=== PATIENT | female | born 1955 | race Caucasian/White ===

== ENCOUNTER → 2016-10-09 | Outpatient (CLI) | payer OTHER ==
[~2016-10-09] MED LIST: ALBU1AER9 INH; ALBUAER19 INH; ASPCH81X PO; B-COTAB18; CALCTAB5 PO; CHN/1 PO; CLON0.5T3 PO; CLOP1TAB15 PO; FLUO40CA8 PO; GLC/500 PO; GLC500 PO; LISI5TAB PO; METO-596 PO; METO1TAB69 PO; METO50TA17; MULTTAB58 PO; OMEG10007 PO; ONDA4TAB10 SL; PROAIR INH; SIMV-151 PO
--- NOTE | 2016-10-10 06:30 | PAP/PSG TECHNICIAN REPORT ---
[facility] Edge Beader Polysomnogram Report Study name: None Report date: 10/10/2016 Study date: 10/09/2016 Referring Physician: DR. FORREST Name: SANDRA FABIAN Interpreting Physician: Ian Forrest M.D. Date of : 1955 Edge Beader: Kelly Leon [facility]. Sex: Female Age: 61 Study Type: PSG Weight: 196 lbs 15 in Height: 61 years, Height 5' 2" Neck Circum: BMI: 35.84 Medications: ALBUTEROL SULFATE, ASPIRIN 81 MG, CALCIUM, CHANTIX 1 MG, CHROMIUM, CLONAZEPAM 0.5 MG, CLOPIDOGREL BISULFATE 75 MG, VIT D 5000 UNIT, FISH OIL, FLUOXETINE 40 MG, HYDROCODONE-ACETAMINOPHEN 5-325 MG, KETOCONAZOLE 2% EX CREAM, LISINOPRIL 5 MG, MAGESIUM OXIDE, METFORMIN 500 MG, METHOCARBAMOL 500 MG, METHYLPREDNISOLONE 4 MG, METOPROLOL 50 MG, MULTI VIT, PROAIR HFA, SIMVASTATIN 20 MG, SYMBICORT, VIT B COMPLEX Patient History 61 yr-old female here for a baseline/split study. She has a history of excessive daytime sleepiness, snoring, and has to take naps during the day. Her Manzanita scale is 12. CPAP will be started if AHI is above 15 (per H&P). The test was started on room air. ETCO2 testing was not utilized during this study. Room 1 Parameters Monitored NPSG: E1-M2, E2-M1, Fp1-M2, Fp2-M1, F3-M2, F4-M2, F4-M1, C3-M2, C4-M2, C4-M1, O1-M2, O2-M2, O2-M1, T3-M2, T4-M1, P3-M2, P4-M1, CHIN1, CHIN2, HR, EKG, Legs, PFLOW, SNOR, FLOW, CFLOW, Tidal Volume, THOR, ABDO, SpO2, PLTH, CPRESS, ETCO2 Wave, ETCO2, pH Sleep Architecture Sleep Stages Time at Lights Off 8:48:14 PM STAGES Time (min.) TST (%) Time at Lights On 5:30:14 AM Wake 104.0 -- Total Recording Time (TRT) 522.00 min. N1 87.0 21 Total Sleep Period (TSP) 458.5 min. N2 262.0 63 Total Sleep Time (TST) 418.0min. N3 5.5 1 Awake Time 104.0 min. REM 63.5 15 Wake after Sleep Onset 40.5 min. Sleep Efficiency (SE) 80 % Sleep Onset Latency (NIKI) 63.5 min. Number of Stage 1 Shifts None Awakenings 19 Stage Changes 113 Number of REM periods 3 REM 63.5 15 REM Latency 220.5 min. NREM 354.5 85 Body Position Analysis Supine Right Left Side Prone Vertical Total Sleep Time (min.) 0.2 101.5 196.7 298.18 128.3 0.0 Total Sleep Time (%) 0% 24% 47% 71 29% N/A% Total Sleep Time REM (min.) 0.0 0.0 15.5 None 48.0 0.0 Total Sleep Time NREM (min.) 0.0 101.5 181.2 None 71.8 0.0 Intermittent Wake (min.) 0.2 26.0 69.3 None 8.5 0.0 Total Sleep Period (%) 0% None None None None None Arousals Myoclonus (PLM) * Events Count Index Events Count Index Spontaneous 28 4 Events Awake (PLMW) 38 21.9 Respiratory 9 1.3 Events Asleep w/ Arousal (PLMA) 11 1.6 PLM 11 2 Events Asleep w/o Arousal (PLMS) 164 23.5 Snoring 46 7 Total Asleep 175 25.1 Total 94 13 Total 213 24 Respiratory Analysis * CA OA MA CH H RERA Total Count 0 1 1 0 43 8 45 Index 0.0 0.1 0.1 0 6.2 1 7.6 Mean Duration 0.0 15.6 17.5 0.00 19.5 16.9 19.0 Longest Duration 0.0 15.6 17.5 0.00 17.5 20.0 48.5 Respiratory Event Summary Total Supine ~Supine Right Left Prone REM NREM Apneas Count 2 N/A 2 1 1 0 0 2 Index 0.3 N/A 0 0.6 0.3 0 0 0 Hypopneas (4% Desat) Count 43 N/A 43 2 21 20 18 25 Index 6.2 N/A 6 1.2 6.4 10.0 17.0 4.2 Apneas & All Hypopneas Count 45 N/A 45 3 22 20 18 27 Index 6.5 N/A 6 2 7 10 17.0 4.6 Respiratory Events (Lead Burner+All Hyp+RERA) Count 45 N/A 53 3 26 24 18 27 Index 7.6 N/A 8 1.8 7.9 12.0 18.9 5.6 Respiratory Related Arousal Count 9 N/A 9 0 5 4 2 7 Index 1.3 N/A 1 0 2 2 2 1 Snoring Analysis Supine Right Left Prone REM NREM Total Snore duration 106.5 min Snores count N/A 975 1,907 1,160 645 3,397 4,042 Snore mean duration 1.6 Sec Snores index N/A 576 582 581 609.4 575.0 580.2 TST with snoring (%) 25.5% Desaturation Event Summary: Minimum %SpO2 Event Count Mean/Min/Max Duration(sec.) Desaturation Index % Time In Bed > 90 54 30.2 / 11.0 / 60.0 10.4 60.7 86 - 90 17 30.0 / 11.0 / 49.3 5.2 38.4 81 - 85 0 N/A 0.0 0.9 76 - 80 0 N/A 0.0 0.0 71 - 75 0 N/A 0.0 0.0 66 - 70 0 N/A 0.0 0.0 61 - 65 0 N/A 0.0 0.0 56 - 60 0 N/A 0.0 0.0 51 - 55 0 N/A 0.0 0.0 < 50 0 N/A 0.0 0.0 Total REM NREM Awake <50% 0.0 min. 0.0 min. 0.0 min. 0.0 min. 51 - 60% 0.0 min. 0.0 min. 0.0 min. 0.0 min. 61 - 70% 0.0 min. 0.0 min. 0.0 min. 0.0 min. 71 - 80% 0.0 min. 0.0 min. 0.0 min. 0.0 min. 81 - 90% 202.2 min. 34.2 min. 122.4 min. 45.6 min. 91 - 100% 312.7 min. 29.3 min. 231.4 min. 52.0 min. Average 91 90 91 91 Minimum SpO2 79 81 86 79 Desaturation Event Index 6.6 15.1 6.1 3.5 # Desat. Events below 89% 26 11 13 2 Time(%) with Saturation below 89% 4.0 2.8 1.1 0.1 Time(min.) with Saturation below 89% 20.8 14.6 5.6 0.6 Time (mins) REM (mins) NREM (mins) % of TST SpO2 Below 90% 46 16 N30 13.1 SpO2 Below 88% 13 0 0 2 Heart Rate Analysis Min (bpm) Max (bpm) Average (bpm) Awake 52 82 61 NREM 53 75 61 REM 57 75 66 Overall 53 75 62 Supplemental O2 Values Minimum O2 level: None Value Start Time End Time Edge Beader Comments Ms. Fabian slept in the right, left, and prone positions. No cardiac arrhythmias or PLMs noted. No bruxism noted. Snoring was noted and scored as a 3-4 on a scale of 1 through 5. (0=no snoring, 5=snoring loud enough to be heard through a closed door or down the garcia way) She did not meet specific Split-Night criteria during the diagnostic portion of this study. She awoke to use the restroom one time during the night. Ms. Fabian stated that she was unsure of how she slept. The final report will be interpreted and signed by a sleep physician. The completed physician report will then be placed in the patient medical record. Therapy (cm H2O) 0 TIB (min.) 522.0 TST (min.) 418.0 Sleep Onset (min.) 63.5 REM Onset From Sleep (min.) 220.5 Sleep Efficiency % 80 Wakefulness (%) 20 Wakefulness (min.) 104.0 NREM 1 (%) 21 NREM 1 (min.) 87.0 NREM 2 (%) 63 NREM 2 (min.) 262.0 NREM 3 (%) 1 NREM 3 (min.) 5.5 REM (%) 15 REM (min.) 63.5 # Arousals 94 Arousal Index 13 # Snore 4,042 Snore Index 580.2 AHI 6.5 AHI Supine N/A AHI Non-Supine 6 NREM AHI 4.6 REM AHI 17.0 RDI 7.6 # Obstructive Apnea 1 # Central Apnea 0 # Mixed Apnea 1 # Hypopneas 43 RERAs 8 Total Respiratory Events 53 Time Below SpO2 89% (min.) 20.2 Mean NREM SpO2 (%) 91 Mean REM SpO2 (%) 90 Mean Sleep SpO2 (%) 91 Min NREM SpO2 (%) 86 Min REM SpO2 (%) 81 Position Supine (min.) 0.2 Position Non-supine (min.) 418.0 LM Index Sleep 25.1 LM Index NREM 27.2 LM Index REM 13.2 Mean Heart Rate (bpm) 62 Min Heart Rate (bpm) 53
--- NOTE | 2016-10-12 08:54 | POLYSOMNOGRAPH REPORT ---
CLINICAL DATA: 61-year-old female with fatigue, snoring, excessive daytime sleepiness, and a crowded airway. She is referred by myself and Avila Lopez for a sleep study. SLEEP ARCHITECTURE: Total sleep period was 458.5 minutes. Total sleep time was 418 minutes divided between 354.5 minutes of non-REM sleep and 63.5 minutes of REM sleep. Sleep onset latency was delayed at 63.5 minutes. REM latency was delayed at 220.5 minutes. Sleep efficiency was 80%. Wake after sleep onset was 40.5 minutes. Sleep consisted of stage N1 29%, N2 63%, N3 1%, REM 15%. AROUSAL DATA: 94 arousals were recorded for an index of 13 per hour. PLM DATA: 175 limb movements during sleep were noted for an index of 25.1 per hour with arousal index of 1.6 per hour. RESPIRATORY DATA: Very mild sleep apnea was documented. The AHI was 6.5. The RDI was 7.6. There was 1 obstructive and 1 mixed apneic episode. The longest duration of apnea was 17.5 seconds. There were 43 hypopneic episodes. The mean duration of hypopnea was 19.5 seconds. OXIMETRY DATA: Mild nocturnal hypoxemia was seen. Oxygen anne marie was 81% during REM. The mean saturation was 91%. Time below 88% was 13 minutes. EKG: Heart rates ranged from 53-75 beats per minute. No arrhythmias were noted. VACUUM CASTER'S COMMENTS: The patient slept in the right, left, and prone positions. Snoring was moderate to severe, rated 3-4 on a scale of 1-5. IMPRESSION: Mild obstructive sleep apnea with an AHI of 6.5 with mild nocturnal hypoxemia. RECOMMENDATIONS: The patient may benefit from weight loss, use of an oral appliance or a repeat sleep study with CPAP. Clinical correlation is needed. [facility]ITAL[facility]
== END | disposition home or self-care (01) ==
LOC: C.NEUR 20:00
PROVIDERS: ATTEND Internal Medicine Pulmonary Disease
DX: G47.19 Other hypersomnia (principal); R06.83 Snoring; G47.33 Obstructive sleep apnea (adult) (pediatric)

== ENCOUNTER → 2016-10-17 | Outpatient (CLI) | payer OTHER ==
[~2016-10-17] VITALS: Ht 157.5 cm; Wt 91.4 kg
[2016-10-17 12:28] VITALS: BP 149/80; PULSE 73; Ht 157.5 cm; Wt 91.4 kg
== END | disposition home or self-care (01) ==
LOC: C.NEUR 12:05
PROVIDERS: ATTEND Internal Medicine Pulmonary Disease
DX: G47.33 Obstructive sleep apnea (adult) (pediatric) (principal); J45.909 Unspecified asthma, uncomplicated; G47.19 Other hypersomnia

== ENCOUNTER 2016-11-09 14:47 | Emergency (ER) | payer OTHER ==
[~2016-11-09] VITALS: Ht 157.5 cm; Wt 82.6 kg
[~2016-11-09 14:47] MED LIST changes: -ASPCH81X PO; -CHN/1 PO; -CLON0.5T3 PO; -CLOP1TAB15 PO; -GLC/500 PO; -METO-596 PO; -METO1TAB69 PO; -OMEG10007 PO; -ONDA4TAB10 SL; -PROAIR INH
[2016-11-09 15:02] VITALS: TEMP 37.6; Ht 157.5 cm; Wt 82.6 kg
[2016-11-09] MEDS ORDERED: SODIUM CHLORIDE 0.9% 500ML 500 ML IV STA (16:35)
[2016-11-09] MEDS ORDERED: SODIUM CHLORIDE 0.9% 1000ML 1,000 ML IV STA (16:35)
[2016-11-09] MEDS ORDERED: ONDANSETRON INJ 2 MG/ML 2 ML VIAL IV STA (16:35)
[2016-11-09] MEDS ORDERED: CHN/1 PO (16:40)
[2016-11-09] MEDS ORDERED: GLC/500 PO (16:40)
[2016-11-09] MEDS ORDERED: PROAIR INH (17:02)
[2016-11-09 17:19] LABS: BASO % 0.2 %; BASO ABS # 0.02 K/uL (0-0.2); COMPLETE YES; EOS % 0.2 %; HEMATOCRIT 40.3 % (37-47); IG% 0.3 %; LYMPH ABS # 0.35 K/uL (1.2-3.4); MEAN CELL VOLUME 94.6 fL (80-100); MEAN CORPUSCULAR HEMOGLOBIN 32.6 pg (25-34); MEAN CORPUSCULAR HGB CONC 34.5 g/dl (32-36); MEAN PLATELET VOLUME 9.2 fL (7.4-10.4); MONO % 5.5 %; NEUT % 89.8 %; PLATELET COUNT 247 K/uL (130-400); RED BLOOD COUNT 4.26 M/uL (4.2-5.4)
[2016-11-09 17:23] LABS: URINE APPEARANCE CLEAR (CLEAR); URINE BILIRUBIN NEG (NEG); URINE COLOR DK YELLOW; URINE EPITHELIAL CELL AUTO >30 /lpf (0-5); URINE NITRITE NEG (NEG); URINE SPECIFIC GRAVITY 1.028 (1.000-1.030); UROBILINOGEN NEG (NEG); ZZUR CULT IF INDIC CLEAN CATCH NO
[2016-11-09 17:24] LABS: MANUAL MICROSCOPIC REQUIRED? NO; REVIEW REQ? NO
[2016-11-09 17:40] LABS: MAGNESIUM 1.6 mg/dl (1.8-2.4)
[2016-11-09] MEDS ORDERED: CLOP1TAB15 PO (19:06)
[2016-11-09] MEDS ORDERED: OMEG10007 PO (19:06)
[2016-11-09] MEDS ORDERED: CLON0.5T3 PO (19:06)
[2016-11-09] MEDS ORDERED: METO1TAB69 PO (19:06)
[2016-11-09] MEDS ORDERED: ONDA4TAB10 SL (20:20)
--- NOTE | 2016-11-09 20:21 | EMERGENCY ROOM VISIT NOTE ---
History First contact with patient: 16:16 Chief Complaint: VOMITING Stated Complaint: VOMITING AND DIARRHEA Nursing Triage Summary: Patient reports that for the past two to three days she has had nausea and vomiting in the morning only but states today it has been all day. Patient denies any pain. States when she vomits it is yellow bile. Also c/o diarrhea. History of Present Illness The patient is a 61 year old female who presents to the Emergency Department by private vehicle for evaluation of her nausea, vomiting, and diarrhea. The patient reports that she has had diarrhea for the past few weeks. She is not been evaluated for this to this point. She reports that approximately 3 AM she developed nausea and vomiting. She's had persistent symptoms throughout the day. She denies any recent sick contacts. She denies any blood in her vomit or stool. The patient denies any recent long distance travel, recent antibiotic use, consumption of raw/undercooked foods, or drinking from poor water sources. She denies any pain in her abdomen. She rates her current discomfort as 0/10. She denies any headaches, dizziness, lightheadedness, chest pain, palpitations, short of breath, hematochezia, melena, hematuria, or dysuria. Review of Systems A complete 10-point Review of Systems was discussed with the patient, with pertinent positives and negatives listed in the History of Present Illness. All remaining Review of Systems questions can be considered negative unless otherwise specified. Social History Smoking Status: Former Smoker Alcohol Use: none Drug Use: none Marital Status: single Housing Status: lives alone Occupation Status: employed Current/Historical Medications Scheduled B-Complex Vitamins (Vitamin B Complex), DAILY Clonazepam (Klonopin), 0.5 MG PO TID Clopidogrel (Plavix), 75 MG PO DAILY Fish Oil (Taylor-3), 1 CAP PO BID Fluoxetine (Prozac), 40 MG PO DAILY Lisinopril (Prinivil), 5 MG PO DAILY Metformin Hcl (Glucophage), 1,000 MG PO BID Metoprolol Succ (Toprol Xl) (Toprol-Xl ), 100 MG PO BID Multiple Vitamin (Multivitamin), 1 TAB PO DAILY Simvastatin (Simvastatin), HS Varenicline (Chantix), 1 MG PO BID Scheduled PRN Ondasetron Odt (Zofran Odt), 1 TAB SL Q6 PRN for Nausea or Vomiting [Proair], 2 PUFFS INH QID PRN for SOB/Wheezing Allergies Coded Allergies: No Known Allergies (Verified , 03/01/13) Physical Exam Vital Signs Date Time Temp Pulse Resp B/P Pulse Ox O2 Delivery O2 Flow Rate FiO2 11/09/16 20:40 86 20 120/72 97 11/09/16 18:56 87 18 104/65 97 Room Air 11/09/16 16:48 96 18 128/79 98 Room Air 11/09/16 15:02 37.6 108 20 115/72 95 Room Air Pain Rating (0-10): 0 Physical Exam VITAL SIGNS - Vital signs and nursing notes were reviewed. GENERAL - 61-year-old female appearing her stated age who is in no acute distress. Communicates well with provider and answers questions appropriately. LUNGS - Chest wall symmetric without accessory muscle use, intercostals retractions, or central cyanosis. Normal vesicular breath sounds CTA B/L. No wheezes, rales, or rhonchi appreciated. CARDIAC - RRR with S1/S2. No murmur, rubs, or gallops appreciated. ABDOMEN - Abdominal contour obese and without pulsations or visible masses. BS normoactive all four quadrants. No tenderness to palpation appreciated throughout. No guarding. No Rebound Tenderness. Negative Rovsing's. Negative Conway's. No palpable masses, hepatosplenomegaly, or ascites noted. PSYCH - A&Ox3 and cooperates fully with examiner. Pt is very pleasant and interacts well with examiner. Medical Decision & Procedures Laboratory Results 11/09/16 17:05 Red Blood Count 4.26, Mean Corpuscular Volume 94.6, Mean Corpuscular Hemoglobin 32.6, Mean Corpuscular Hemoglobin Concent 34.5, Mean Platelet Volume 9.2, Neutrophils (%) (Auto) 89.8, Lymphocytes (%) (Auto) 4.0, Monocytes (%) (Auto) 5.5, Eosinophils (%) (Auto) 0.2, Basophils (%) (Auto) 0.2, Neutrophils # (Auto) 7.80, Lymphocytes # (Auto) 0.35, Monocytes # (Auto) 0.48, Eosinophils # (Auto) 0.02, Basophils # (Auto) 0.02 Test 11/09/16 17:05 11/09/16 18:55 White Blood Count 8.70 K/uL (4.8-10.8) Red Blood Count 4.26 M/uL (4.2-5.4) Hemoglobin 13.9 g/dL (12.0-16.0) Hematocrit 40.3 % (37-47) Mean Corpuscular Volume 94.6 fL (80-100) Mean Corpuscular Hemoglobin 32.6 pg (25-34) Mean Corpuscular Hemoglobin Concent 34.5 g/dl (32-36) Platelet Count 247 K/uL (130-400) Mean Platelet Volume 9.2 fL (7.4-10.4) Neutrophils (%) (Auto) 89.8 % Lymphocytes (%) (Auto) 4.0 % Monocytes (%) (Auto) 5.5 % Eosinophils (%) (Auto) 0.2 % Basophils (%) (Auto) 0.2 % Neutrophils # (Auto) 7.80 K/uL (1.4-6.5) Lymphocytes # (Auto) 0.35 K/uL (1.2-3.4) Monocytes # (Auto) 0.48 K/uL (0.11-0.59) Eosinophils # (Auto) 0.02 K/uL (0-0.5) Basophils # (Auto) 0.02 K/uL (0-0.2) RDW Standard Deviation 44.9 fL (36.4-46.3) RDW Coefficient of Variation 13.1 % (11.5-14.5) Immature Granulocyte % (Auto) 0.3 % Immature Granulocyte # (Auto) 0.03 K/uL (0.00-0.02) Urine Color DK YELLOW Urine Appearance CLEAR (CLEAR) Urine pH 5.0 (4.5-7.5) Urine Specific Sulphur 1.028 (1.000-1.030) Urine Protein NEG (NEG) Urine Glucose (UA) NEG (NEG) Urine Ketones NEG (NEG) Urine Occult Blood TRACE (NEG) Urine Nitrite NEG (NEG) Urine Bilirubin NEG (NEG) Urine Urobilinogen NEG (NEG) Urine Leukocyte Esterase NEG (NEG) Urine WBC (Auto) 1-5 /hpf (0-5) Urine RBC (Auto) 0-4 /hpf (0-4) Urine Hyaline Casts (Auto) 1-5 /lpf (0-5) Urine Epithelial Cells (Auto) >30 /lpf (0-5) Urine Bacteria (Auto) NEG (NEG) Magnesium Level 1.6 mg/dl (1.8-2.4) Lipase 98 U/L (73-393) Bedside Glucose 107 mg/dl (70-90) Date/Time Source Procedure Growth Status 11/09/16 18:30 Stool Shiga Toxin Test - Final No E. Coli shiga toxin 1 or shiga tox... Complete 11/09/16 18:30 Stool Stool Culture - Final NO SALMONELLA ISOLATED,... Complete Medications Administered Medications (Trade) Dose Ordered Sig/Alban Route Start Time Stop Time Status Last Admin Dose Admin Sodium Chloride 500 ml @ 999 mls/hr Q31M STAT IV 11/09/16 16:35 11/09/16 17:05 DC 11/09/16 16:35 999 MLS/HR Sodium Chloride (Nss 1000ml) 1,000 ml @ 250 mls/hr Q4H STAT IV 11/09/16 16:35 11/09/16 20:34 DC 11/09/16 16:47 250 MLS/HR Ondansetron HCl (Zofran Inj) 4 mg NOW STAT IV 11/09/16 16:35 11/09/16 16:38 DC 11/09/16 16:48 4 MG Ondansetron HCl (ZOFRAN ODT 4MG Home Pack) 1 homepack UD ONCE PO 11/09/16 20:30 11/09/16 20:31 DC 11/09/16 20:44 1 HOMEPACK ED Course Patient was seen and evaluated by myself. Outpatient labs were reviewed. Labs were drawn, saline lock in place. The patient was hydrated with a 500 mL normal saline bolus and received 4 mg Zofran intravenously for nausea. Laboratory results demonstrate no acute leukocytosis, significant anemia, or bandemia. The patient has no significant electrolyte abnormalities. Stool culture was obtained. Patient was reevaluated and reports feeling much better at this time. Stool culture was negative for C. difficile. Laboratory results were reviewed with the patient who acknowledges understanding. She was encouraged to follow with her primary care provider from today's visit. She was educated on worrisome symptoms for return visit to the emergency department. Patient discharged home afebrile and in good condition. Medical Decision Given the patient's presentation and stated complaints, I did elect to perform the above-mentioned workup. The patient presents today with nausea, vomiting, and diarrhea. She has no fever leukocytosis. Her abdomen is soft and nontender to palpation. Her diarrhea seems to be more of a chronic situation well the nausea and vomiting is more acute. The patient is likely experiencing an acute gastroenteritis. Demetrio water well to IV fluids and Zofran. The patient will follow closely with her primary care provider from today's visit or return in the setting of any changing/worsening symptoms. Patient discharged home afebrile and in good condition. In the evaluation and treatment of this patient, the following differential diagnoses were considered: Appendicitis, Diverticulitis, Diverticulosis, Colitis , Ischemic Colitis, Inflammatory Bowel Disease, Irritable Bowel Disease, Kidney Stone, Pyelonephritis, Hydronephrosis, Cholecystitis, Ascending Cholangitis, Choledocholithiasis, GERD. Impression Primary Impression: Nausea, vomiting, and diarrhea Departure Information Dispostion Home / Self-Care Condition GOOD Prescriptions Ondasetron Odt (ZOFRAN ODT) 4 Mg Tab 1 TAB SL Q6 Y for Nausea or Vomiting for 5 Days, #20 TAB Prov: Luis Enrique Santos, MIESHA 11/09/16 Referrals Avila Lopez III, CRNP (PCP) Patient Instructions ED Diet Vomiting Diarrhea, My [facility] Additional Instructions You've been seen in the emergency department today for your nausea, vomiting, and diarrhea. You have been prescribed Zofran to be used for any nausea or vomiting. Take as prescribed. Drink plenty of fluids and stay well-hydrated. Follow-up with your primary care provider from today's visit. Return for any changing or worsening symptoms.
[2016-11-09] MEDS ORDERED: ONDANSETRON HOME PACK 4MG OD TAB PO ONE (20:30)
[2016-11-09 20:40] VITALS: BP 120/72; PULSE 86; O2SAT 97
[2016-11-24] MEDS ORDERED: METO-596 PO (09:49)
[2016-11-24] MEDS ORDERED: ASPCH81X PO (09:49)
== END 2016-11-09 20:40 | disposition home or self-care (01) ==
LOC: C.EDB 14:48 → C.EDC 20:40
DX: R11.2 Nausea with vomiting, unspecified (principal); R19.7 Diarrhea, unspecified; Z87.891 Personal history of nicotine dependence

== ENCOUNTER → 2016-11-09 | Outpatient (CLI) | payer OTHER ==
[2016-11-09 10:00] LABS: ALT/SGPT 29 U/L (12-78); BLOOD UREA NITROGEN 32 mg/dl (7-18); BUN/CREATININE RATIO 31.9 (10-20); CALCIUM 9.2 mg/dl (8.5-10.1); CARBON DIOXIDE 24 mmol/L (21-32); CHLORIDE 104 mmol/L (98-107); CHOLESTEROL 157 mg/dl (0-200); GLUCOSE 126 mg/dl (70-99); POTASSIUM 4.9 mmol/L (3.5-5.1); SODIUM 139 mmol/L (136-145); TRIGLYCERIDES 273 mg/dl (0-150); VERY LOW DENSITY LIPOPROT CALC 55 mg/dl
[2016-11-09 10:07] LABS: ALKALINE PHOSPHATASE 62 U/L (45-117); AST/SGOT 14 U/L (15-37); CHOLESTEROL/HDL RATIO 3.9; HDL CHOLESTEROL 40 mg/dl; LDL CHOLESTEROL CALCULATED 62 mg/dl
[2016-11-09 10:19] LABS: ESTIMATED AVERAGE GLUCOSE 134 mg/dl; HA1C FLAG Normal (Normal)
[2016-11-09 10:33] LABS: RATIO 37.1 mcg/mg (0-30.0)
== END | disposition home or self-care (01) ==
LOC: C.LAB 06:50
PROVIDERS: ATTEND Nurse Practitioner Family
DX: E11.9 Type 2 diabetes mellitus without complications (principal); E78.00 Pure hypercholesterolemia, unspecified; I10 Essential (primary) hypertension

== ENCOUNTER → 2016-11-23 | Outpatient (CLI) | payer OTHER ==
[~2016-11-23] MED LIST changes: -ALBU1AER9 INH; -ALBUAER19 INH; +ASPCH81X PO; -CALCTAB5 PO; +CHN/1 PO; +CLON0.5T3 PO; +CLOP1TAB15 PO; +GLC/500 PO; -GLC500 PO; +METO-596 PO; +METO1TAB69 PO; -METO50TA17; +OMEG10007 PO; +PROAIR INH
[2016-11-26 17:33] LABS: IGA SERUM 241 mg/dL (81-463); TIS TRANS IGA 1 U/mL (<4)
== END | disposition home or self-care (01) ==
LOC: C.LAB1850 10:18
PROVIDERS: ATTEND Internal Medicine
DX: R19.7 Diarrhea, unspecified (principal)

== ENCOUNTER → 2016-12-01 | Day surgery (SDC) | payer OTHER ==
[2016-11-24 09:49] VITALS: BMI 35.0
[~2016-12-01] VITALS: Ht 157.5 cm; Wt 86.4 kg
[~2016-12-01] MED LIST changes: +ALBU1.257 NEB; -B-COTAB18; +BACITRACIN 50000 UNIT VIAL ONE; +BUPIVACAINE/EPINEPHRINE 0.5% MPF 1:200,000 30 ML VIAL ONE; +CYAN100T PO; +FENTANYL CITRATE INJ 50 MCG/1 ML 2 ML VIAL ONE; +LIDOCAINE HCL 2% 2 ML VIAL (20MG/ML) ONE; -METO1TAB69 PO; +PROPOFOL IV EMULSION 10 MG/ML 20 ML VIAL IV ONE; +SODIUM CHLORIDE 0.9% 500ML 500 ML IV ONE; +SODIUM CHLORIDE 0.9% PF 50 ML VIAL ONE
[2016-12-01 10:22] VITALS: Ht 157.5 cm; Wt 86.4 kg
[2016-12-01 10:37] VITALS: TEMP 37.1
--- NOTE | 2016-12-01 10:57 | Endo History and Physical ---
History & Physical Date of Service: Dec 01, 2016. Chief Complaint: diarrhea Referring Physician: Dr Rae History of Present Illness 61 yo CF who presents for colonoscopy secondary to diarrhea. Past Medical History Diabetes, Angioplasty/Stent, Asthma, Anxiety, Gynecological Problems, Cancer, High Cholesterol, Hypertension, Depression, MA Past Surgical History Hx Cardiac Surgery: Yes (CARDIAC CATH-1 STENT) Hx Internal Defibrillator: No Hx Pacemaker: No Hx Abdominal Surgery: Yes (EARL BSO) Hx Post-Op Nausea and Vomiting: No Hx Cancer Surgery: Yes (RT MIDDLE LOBECTOMY) Hx Thoracic Surgery: No Hx Orthopedic: No Hx Urinary Tract Surgery: No Family History Colon CA Social History Smoking Status: Former Smoker Hx Substance Use: No Hx Alcohol Use: No Allergies Coded Allergies: No Known Allergies (Verified , 11/24/16) Current Medications Reported Home Medications Medications Dose Route/Sig Max Daily Dose Days Date Category Aspirin Chewable (Aspirin) 81 Mg Chew 81 Mg PO QAM 11/24/16 Reported Lopressor (Metoprolol Tartrate) 100 Mg Tab 100 Mg PO BID 11/24/16 Reported [Proair] 2 Puffs INH QID PRN 11/09/16 Reported Chantix (Varenicline) 1 Mg Tab 1 Mg PO BID 11/09/16 Reported Glucophage (Metformin Hcl) 500 Mg Tab 1,000 Mg PO BID 11/09/16 Reported Simvastatin 20 Mg Tab 1 Tab PO HS 02/03/15 Reported Multivitamin (Multiple Vitamin) 1 Tab Tab 1 Tab PO QPM 02/03/15 Reported Prinivil (Lisinopril) 5 Mg Tab 5 Mg PO BID 02/03/15 Reported Prozac (Fluoxetine HCl) 40 Mg Cap 40 Mg PO QAM 02/03/15 Reported [place]-3 (Fish Oil) 1 Ea Cap 1 Cap PO BID 12/15/07 Reported Plavix (Clopidogrel Bisulfate) 75 Mg Tab 75 Mg PO QAM 12/15/07 Reported Klonopin (Clonazepam) 0.5 Mg Tab 0.5 Mg PO TID 12/15/07 Reported Vital Signs Weight (Kilograms): 86.36 Height (Feet): 5 Height (Inches): 2 Date Time Temp Pulse Resp B/P Pulse Ox O2 Delivery O2 Flow Rate FiO2 12/01/16 10:37 37.1 72 20 139/82 94 Room Air Physical Exam General Appearance: WD/WN, no apparent distress Respiratory/Chest: Auscultation: breath sounds normal Cardiovascular: Heart Auscultation: RRR Abdomen: Bowel Sounds: normal Inspection & Palpation: soft, non-distended, no tenderness, guarding & rebound Assessment and Plan Assessment: 61 yo CF who presents for colonoscopy secondary to diarrhea. Plan: Proceed with colonoscopy.
--- NOTE | 2016-12-01 11:41 | Discharge Instructions ---
Endoscopy Patient Instructions Date / Procedure(s) Performed Dec 01, 2016. Colonoscopy Allergy Information Coded Allergies: No Known Allergies (Verified , 11/24/16) Discharge Date / Findings Dec 01, 2016. Colon polyp Colon lipoma Diverticulosis Internal hemorrhoids Random colon biopsies Stool studies collected Medication Instructions Stopped Medication(s): Plavix, ASA metformin OK to resume all medications today as prescribed Reported Home Medications Medications Dose Route/Sig Max Daily Dose Days Date Category Aspirin Chewable (Aspirin) 81 Mg Chew 81 Mg PO QAM 11/24/16 Reported Lopressor (Metoprolol Tartrate) 100 Mg Tab 100 Mg PO BID 11/24/16 Reported [Proair] 2 Puffs INH QID PRN 11/09/16 Reported Chantix (Varenicline) 1 Mg Tab 1 Mg PO BID 11/09/16 Reported Glucophage (Metformin Hcl) 500 Mg Tab 1,000 Mg PO BID 11/09/16 Reported Simvastatin 20 Mg Tab 1 Tab PO HS 02/03/15 Reported Multivitamin (Multiple Vitamin) 1 Tab Tab 1 Tab PO QPM 02/03/15 Reported Prinivil (Lisinopril) 5 Mg Tab 5 Mg PO BID 02/03/15 Reported Prozac (Fluoxetine HCl) 40 Mg Cap 40 Mg PO QAM 02/03/15 Reported [place]-3 (Fish Oil) 1 Ea Cap 1 Cap PO BID 12/15/07 Reported Plavix (Clopidogrel Bisulfate) 75 Mg Tab 75 Mg PO QAM 12/15/07 Reported Klonopin (Clonazepam) 0.5 Mg Tab 0.5 Mg PO TID 12/15/07 Reported Provider Instructions Activity Restrictions - No exercising or heavy lifting for 24 hours. - Do not drink alcohol the day of the procedure. - Do not drive a car or operate machinery until the day after the procedure. - Do not make any important decisions or sign important papers in 24 hours after the procedure. Following Day: - Return to full activity which may include returning to work/school. Diet Start your diet with liquids and light foods (jello, soup, juice, toast). Then eat your usual diet if not nauseated. Treatment For Common After Affects For mild abdominal pain, bloating, or excessive gas: - Rest - Eat lightly - Lie on right side Follow-Up Information Follow-up with Dr Rae as scheduled Anesthesia Information What You Should Know You have had a procedure that required some medicine to reduce anxiety and discomfort. This treatment is called moderate sedation. After receiving the treatment, you may be sleepy, but you will be able to breathe on your own. The effects of the treatment may last for several hours. Follow these instructions along with Activity/Diet recommendations noted above: * Do NOT do anything where dizziness or clumsiness would be dangerous. * Rest quietly at home today, then you can be up and about tomorrow. * Have a responsible person stay with you the rest of today. * You may have had an I.V. today. If so, you may take the dressing off later today. Recommendations Call your doctor if: * Trouble breathing * Continuous vomiting for more than 24 hours * Temperature above 101 degrees * Severe abdominal pain or bloating * Pain not relieved by pain medicine ordered * There is increased drainage or redness from any incision * A large amount of rectal bleeding greater than 2-3 tablespoons. (If you had a polyp/s removed or have hemorrhoids, a small amount of blood - from the rectum is to be expected.) * You have any unanswered questions or concerns. IN THE EVENT OF A SERIOUS EMERGENCY, GO TO THE NEAREST EMERGENCY ROOM Your discharge instructions were prepared by provider Smooth Stephenson. Patient Instructions Signature Page Claire Ivory Patient (or Guardian) Signature/Date: I have read and understand the instructions given to me by my caregivers. Caregiver/RN/Doctor Signature/Date: The above-named patient and/or guardian has received patient instructions on this date. + Original Patient Signature Page (only) stays with chart. Please make copy for patient.
--- NOTE | 2016-12-01 11:41 | GI REPORT ---
Procedure Date: 12/01/2016 11:02 AM Procedure: Colonoscopy Indications: Chronic diarrhea Medicines: Monitored Anesthesia Care Complications: No immediate complications. Estimated Blood Loss: Estimated blood loss: none. Procedure: Pre-Anesthesia Assessment: - Prior to the procedure, a History and Physical was performed, and patient medications and allergies were reviewed. The patient's tolerance of previous anesthesia was also reviewed. The risks and benefits of the procedure and the sedation options and risks were discussed with the patient. All questions were answered, and informed consent was obtained. Prior Anticoagulants: The patient last took aspirin 7 days and Plavix (clopidogrel) 7 days prior to the procedure. ASA Grade Assessment: III - A patient with severe systemic disease. After reviewing the risks and benefits, the patient was deemed in satisfactory condition to undergo the procedure. After I obtained informed consent, the scope was passed under direct vision. Throughout the procedure, the patient's blood pressure, pulse, and oxygen saturations were monitored continuously. The scope was introduced through the anus and advanced to the terminal ileum. The colonoscopy was performed without difficulty. The patient tolerated the procedure well. The quality of the bowel preparation was good. The terminal ileum, ileocecal valve, appendiceal orifice, and rectum were photographed. Findings: A 3 mm polyp was found in the ascending colon. The polyp was sessile. The polyp was removed with a cold biopsy forceps. Resection and retrieval were complete. There was a medium-sized lipoma, 15 mm in diameter, in the descending colon. Multiple small-mouthed diverticula were found in the sigmoid colon. Non-bleeding internal hemorrhoids were found during retroflexion. The hemorrhoids were small. Several random biopsies were obtained with cold forceps for histology in the entire colon. Fluid aspiration for cytology was performed in the entire colon. Impression: - One 3 mm polyp in the ascending colon, removed with a cold biopsy forceps. Resected and retrieved. - Medium-sized lipoma in the descending colon. - Diverticulosis in the sigmoid colon. - Non-bleeding internal hemorrhoids. - Several random biopsies were obtained in the entire colon. - Fluid aspiration was performed. Recommendation: - Resume previous diet. - Continue present medications. - Repeat colonoscopy for surveillance based on pathology results. - Return to primary care physician as previously scheduled. Smooth Stephenson DO 12/01/2016 11:40:30 AM This report has been signed electronically. Note Initiated On: 12/01/2016 11:02 AM I attest to the content of the Intraoperative Record and orders documented therein, exceptions below
[2016-12-01 12:00] VITALS: BP 130/69; PULSE 65; O2SAT 96
--- NOTE | 2016-12-01 12:02 | Anesthesiology Progress Note ---
Anesthesia Post Op Note Date & Time Dec 01, 2016 at 12:02 Vital Signs Pain Intensity: 0 Vital Signs Past 12 Hours Date Time Temp Pulse Resp B/P Pulse Ox O2 Delivery O2 Flow Rate FiO2 12/01/16 11:50 64 20 125/56 95 Room Air 12/01/16 11:35 69 20 104/64 95 Room Air 12/01/16 10:37 37.1 72 20 139/82 94 Room Air Notes Mental Status: alert / awake / arousable, participated in evaluation Pt Amnestic to Procedure: Yes Nausea / Vomiting: adequately controlled Pain: adequately controlled Airway Patency, RR, SpO2: stable & adequate BP & HR: stable & adequate Hydration State: stable & adequate Anesthetic Complications: no major complications apparent Pt doing well.
== END | disposition home or self-care (01) ==
LOC: C.GI 10:14
PROVIDERS: ATTEND Internal Medicine
DX: R19.7 Diarrhea, unspecified (principal); K63.5 Polyp of colon; D17.9 Benign lipomatous neoplasm, unspecified; K64.8 Other hemorrhoids; K57.30 Diverticulosis of large intestine without perforation or abscess without bleeding; Z80.0 Family history of malignant neoplasm of digestive organs; E11.9 Type 2 diabetes mellitus without complications; F41.9 Anxiety disorder, unspecified; E78.5 Hyperlipidemia, unspecified; I10 Essential (primary) hypertension; Z79.82 Long term (current) use of aspirin; Z79.02 Long term (current) use of antithrombotics/antiplatelets; Z86.73 Personal history of transient ischemic attack (TIA), and cerebral infarction without residual deficits; Z95.5 Presence of coronary angioplasty implant and graft; Z87.891 Personal history of nicotine dependence

== ENCOUNTER → 2016-12-12 | Outpatient (CLI) | payer OTHER ==
[~2016-12-12] VITALS: Ht 157.5 cm; Wt 91.6 kg
[~2016-12-12] MED LIST changes: -BACITRACIN 50000 UNIT VIAL ONE; -BUPIVACAINE/EPINEPHRINE 0.5% MPF 1:200,000 30 ML VIAL ONE; -FENTANYL CITRATE INJ 50 MCG/1 ML 2 ML VIAL ONE; -LIDOCAINE HCL 2% 2 ML VIAL (20MG/ML) ONE; -PROPOFOL IV EMULSION 10 MG/ML 20 ML VIAL IV ONE; -SODIUM CHLORIDE 0.9% 500ML 500 ML IV ONE; -SODIUM CHLORIDE 0.9% PF 50 ML VIAL ONE
[2016-12-12 12:47] VITALS: BP 135/79; PULSE 79; Ht 157.5 cm; Wt 91.6 kg
== END | disposition home or self-care (01) ==
LOC: C.NEUR 12:05
PROVIDERS: ATTEND Internal Medicine Pulmonary Disease
DX: G47.33 Obstructive sleep apnea (adult) (pediatric) (principal); G47.19 Other hypersomnia; J45.909 Unspecified asthma, uncomplicated

== ENCOUNTER → 2017-02-05 | Outpatient (CLI) | payer OTHER ==
--- NOTE | 2017-02-06 12:45 | MAMMOGRAPHY REPORT ---
BILATERAL DIGITAL SCREENING MAMMOGRAM TOMOSYNTHESIS WITH CAD: 02/05/2017 CLINICAL HISTORY: Routine screening. Patient has no complaints. TECHNIQUE: Breast tomosynthesis in addition to standard 2D mammography was performed. Current study was also evaluated with a Computer Aided Detection (CAD) system. COMPARISON: Comparison is made to exams dated: 02/02/2016 mammogram, 01/14/2015 mammogram, 08/04/2013 ma mmogram, 07/31/2012 mammogram, 04/26/2011 mammogram, and 12/14/2009 mammogram - [facility] enter. BREAST COMPOSITION: There are scattered areas of fibroglandular density in both breasts. FINDINGS: There are scattered bilateral benign rim calcifications. No suspicious mass, architectural distortion or cluster of microcalcifications is seen. IMPRESSION: ACR BI-RADS CATEGORY 1: NEGATIVE There is no mammographic evidence of malignancy. A 1 year screening mammogram is recommended. The pa tient will receive written notification of the results. Approximately 10% of breast cancers are not detected with mammography. A negative mammographic report should not delay biopsy if a clinically suggestive mass is present. Hien Schaefer M.D. ay/:02/05/2017 21:46:41 [employer]outure Dressmaker: Reji BRADY(Allie)(Balaji), [facility] [address] letter sent: Normal 1/2 BI-RADS Code: ACR BI-RADS Category 1: Negative
== END | disposition home or self-care (01) ==
LOC: C.MAMM 08:50
PROVIDERS: ATTEND Nurse Practitioner Family
DX: Z12.31 Encounter for screening mammogram for malignant neoplasm of breast (principal)

== ENCOUNTER → 2017-03-27 | Outpatient (CLI) | payer OTHER ==
[~2017-03-27] MED LIST changes: -ALBU1.257 NEB; -CYAN100T PO
--- NOTE | 2017-03-27 09:47 | DIAGNOSTIC IMAGING REPORT ---
LEFT KNEE 4 OR MORE CLINICAL HISTORY: DEGENERATIVE JOINT DISEASE OF LEFT KNEE pain COMPARISON: None. DISCUSSION: Degenerative change primarily the lateral joint compartment. Mild degenerative change medial compartment as well as patellofemoral joint. No significant joint effusion. Mild peripheral reactive osteophytic formation. There is no evidence for soft tissue swelling. IMPRESSION: Moderate degenerative changes lateral joint compartment with mild degenerative changes throughout the remainder of the left knee. The above report was generated using voice recognition software. It may contain grammatical, syntax or spelling errors. Electronically signed by: Baljinder Atkinson M.D. 03/27/2017 9:46 AM Dictated Date/Time: 03/27/2017 9:45 AM
== END | disposition home or self-care (01) ==
LOC: C.RDSM 09:45
PROVIDERS: ATTEND Physician Assistant
DX: M17.12 Unilateral primary osteoarthritis, left knee (principal)

== ENCOUNTER → 2017-03-30 | Outpatient (CLI) | payer OTHER ==
[2017-03-30 13:41] LABS: BASO % 0.4 %; BASO ABS # 0.03 K/uL (0-0.2); COMPLETE YES; EOS % 1.4 %; HEMATOCRIT 40.7 % (37-47); IG% 0.1 %; LYMPH % 41.3 %; LYMPH ABS # 3.15 K/uL (1.2-3.4); MEAN CELL VOLUME 95.8 fL (80-100); MEAN CORPUSCULAR HEMOGLOBIN 31.5 pg (25-34); MEAN CORPUSCULAR HGB CONC 32.9 g/dl (32-36); MONO % 8.7 %; NEUT % 48.1 %; PLATELET COUNT 245 K/uL (130-400); RED BLOOD COUNT 4.25 M/uL (4.2-5.4); WHITE BLOOD COUNT 7.62 K/uL (4.8-10.8)
[2017-03-30 14:15] LABS: ALT/SGPT 24 U/L (12-78); BLOOD UREA NITROGEN 25 mg/dl (7-18); BUN/CREATININE RATIO 23.1 (10-20); CALCIUM 9.4 mg/dl (8.5-10.1); CARBON DIOXIDE 25 mmol/L (21-32); CHLORIDE 109 mmol/L (98-107); GLUCOSE 81 mg/dl (70-99); MAGNESIUM 1.9 mg/dl (1.8-2.4); POTASSIUM 5.5 mmol/L (3.5-5.1); SODIUM 140 mmol/L (136-145)
[2017-03-30 14:25] LABS: ALKALINE PHOSPHATASE 68 U/L (45-117); AST/SGOT 13 U/L (15-37); FERRITIN 48.8 ng/ml (8.0-388.0)
[2017-03-30 14:51] LABS: ESTIMATED AVERAGE GLUCOSE 146 mg/dl; HA1C FLAG Normal (Normal)
== END | disposition home or self-care (01) ==
LOC: C.LAB1850 11:48
PROVIDERS: ATTEND Nurse Practitioner Family
DX: I10 Essential (primary) hypertension (principal); J45.909 Unspecified asthma, uncomplicated; E55.9 Vitamin D deficiency, unspecified; M79.1 Myalgia; E11.9 Type 2 diabetes mellitus without complications

== ENCOUNTER → 2017-04-24 | Outpatient (CLI) | payer OTHER | END | disposition home or self-care (01) | LOC: C.LAB1850 07:31 | PROVIDERS: ATTEND Family Medicine | DX: E11.9 Type 2 diabetes mellitus without complications (principal); E78.00 Pure hypercholesterolemia, unspecified ==

== ENCOUNTER → 2017-07-23 | Outpatient (CLI) | payer OTHER ==
[~2017-07-23] MED LIST changes: +ALBU1.257 NEB; +CYAN100T PO
--- NOTE | 2017-07-23 11:21 | DIAGNOSTIC IMAGING REPORT ---
PET/CT CLINICAL HISTORY: Pulmonary nodule. History of lung cancer. COMPARISON STUDY: Chest CT scans dated 07/09/2017 and 12/30/2014. TECHNIQUE: One hour following the IV administration of 14.59 mCi of F-18 FDG, PET/CT examination was performed from the orbital meatal line through the bony pelvis. Noncontrast CT is performed for the purposes of anatomic correlation and attenuation correction. Note that this does not reflect a diagnostic CT examination. Images were reviewed on a separate [employer] independent workstation. Fused images were obtained. Standard uptake values reported are maximum values within the region of interest expressed in gm/mL. FINDINGS: PET FINDINGS: Head and neck: There is expected physiologic activity within the visualized brain parenchyma at the skull base and the salivary glands. There is focal activity in the right mandible seen on image #32 with a maximum SUV of 5.6. A periapical lucency is identified at this site and this is likely related to periodontal disease Thorax: Evaluation of the thorax demonstrates expected physiologic myocardial activity. There are tiny foci of nodularity with a linear/branching appearance in the right upper lung seen on image #80. The largest focus of nodularity measures up to 1.3 cm. This is minimally FDG avid with a maximum SUV of 1.7. No pathologically enlarged mediastinal or hilar lymph nodes are identified. There is low level FDG activity in the right hilum seen on image #83 with a maximum SUV of 3.0. Abdomen and pelvis: There is expected activity within the liver, spleen, kidneys, renal collecting system, and bladder. Low-level activity throughout the bowel is likely within physical limits. Unenhanced CT images: Partially imaged brain parenchyma at the skull base is normal in appearance. The orbital contents are normal as visualized. The imaged paranasal sinuses and the mastoid air cells are clear. The salivary and thyroid glands are normal as imaged. No cervical lymphadenopathy is identified. There is atherosclerotic calcification of the thoracic aorta which is normal in caliber. The heart is top normal in size and without pericardial effusion. The coronary arteries are densely calcified. There is a tiny hiatal hernia. There is no axillary lymphadenopathy. Advanced emphysema is identified and there is evidence of previous right-sided pulmonary resection. No lobar consolidation or pleural effusion is seen. See above under PET findings for detailed pulmonary analysis. The unenhanced liver, gallbladder, spleen, adrenal glands, and pancreas are grossly unremarkable. The kidneys demonstrate cortical atrophy and are without hydronephrosis. The abdominal aorta is normal in caliber noting advanced atherosclerotic calcification. There is no bowel obstruction. A normal appendix is identified. There is moderate to advanced colonic diverticulosis without CT evidence of acute diverticulitis. No intraperitoneal free air or abdominal ascites is seen. There is no abdominal, pelvic, or inguinal lymphadenopathy. The bladder is decompressed. The uterus is surgically absent. No adnexal lesion is seen. The skeletal structures are osteopenic. No lytic or blastic bony lesion is identified. Postoperative change is identified in the right posterior ribs. IMPRESSION: 1. Emphysema and postoperative change from right sided pulmonary resection. 2. Tiny foci of nodularity in the right upper lung have not significantly changed from 07/09/2017. Although the majority of these nodules are too small for adequate PET characterization, the largest does demonstrate mild FDG activity. The appearance is nonspecific, and this could present an infectious/inflammatory process versus recurrent neoplasm. Continued CT follow-up is recommended. 3. No pathologically enlarged mediastinal or hilar nodes are clearly identified. Low level FDG activity localizes to the right hilum and is nonspecific. Attention at follow-up is recommended. 4. There is no evidence of extrathoracic metastatic disease. 5. Moderate to advanced colonic diverticulosis without CT evidence of acute diverticulitis. Electronically signed by: Tejas Guardado M.D. 07/23/2017 11:20 AM Dictated Date/Time: 07/23/2017 11:02 AM
== END | disposition home or self-care (01) ==
LOC: C.PET 08:09
PROVIDERS: ATTEND Physician Assistant
DX: Z85.118 Personal history of other malignant neoplasm of bronchus and lung (principal); R91.8 Other nonspecific abnormal finding of lung field; J43.9 Emphysema, unspecified; Z90.2 Acquired absence of lung [part of]; K57.30 Diverticulosis of large intestine without perforation or abscess without bleeding

== ENCOUNTER → 2017-08-02 | Day surgery (SDC) | payer OTHER ==
[2017-07-23 13:41] VITALS: BMI 35.0
[2017-07-23 14:01] LABS: BASO % 0.3 %; BASO ABS # 0.03 K/uL (0-0.2); COMPLETE YES; EOS % 0.6 %; HEMATOCRIT 42.6 % (37-47); IG% 0.3 %; LYMPH ABS # 3.05 K/uL (1.2-3.4); MEAN CELL VOLUME 93.8 fL (80-100); MEAN CORPUSCULAR HEMOGLOBIN 31.3 pg (25-34); MEAN CORPUSCULAR HGB CONC 33.3 g/dl (32-36); MEAN PLATELET VOLUME 9.4 fL (7.4-10.4); MONO % 7.5 %; NEUT % 63.3 %; PLATELET COUNT 242 K/uL (130-400); RED BLOOD COUNT 4.54 M/uL (4.2-5.4); WHITE BLOOD COUNT 10.89 K/uL (4.8-10.8)
[2017-07-23 14:09] LABS: PROTHROMBIN TIME (PATIENT) 10.7 SECONDS (9.0-12.0)
--- NOTE | 2017-07-23 14:24 | PAT Medication Instructions ---
Service Date Jul 23, 2017. Current Home Medication List Albuterol Sulfate (Albuterol Sulfate), 1 VIAL NEB UD PRN for Wheezing Aspirin (Aspirin Chewable), 81 MG PO QAM Clonazepam (Klonopin), 0.5 MG PO TID Clopidogrel (Plavix), 75 MG PO QAM Cyanocobalamin (Vitamin B-12), Unknown Dose PO QAM Fish Oil (Lutz-3), 1 CAP PO BID Fluoxetine (Prozac), 40 MG PO QAM Lisinopril (Prinivil), 5 MG PO BID Metformin Hcl (Glucophage), 1,000 MG PO BID Metoprolol Tartrate (Lopressor), 100 MG PO BID Multiple Vitamin (Multivitamin), 1 TAB PO QPM Simvastatin (Simvastatin), 1 TAB PO HS [Proair], 2 PUFFS INH QID PRN for SOB/Wheezing Medication Instructions For Your Scheduled Surgery -Contact you surgeon and your prescriber for instructions for: Clopidogrel (Plavix), 75 MG PO QAM Aspirin (Aspirin Chewable), 81 MG PO QAM - Hold the following medications starting tomorrow: Fish Oil (Lutz-3), 1 CAP PO BID - Hold the following medications 48 hours prior to surgery: Metformin Hcl (Glucophage), 1,000 MG PO BID - Hold the following medications the morning of surgery: Cyanocobalamin (Vitamin B-12), Unknown Dose PO QAM - Take the following medications the morning of surgery with a sip of water: [Proair], 2 PUFFS INH QID PRN for SOB/Wheezing (if needed) Metoprolol Tartrate (Lopressor), 100 MG PO BID Fluoxetine (Prozac), 40 MG PO QAM Albuterol Sulfate (Albuterol Sulfate), 1 VIAL NEB UD PRN for Wheezing (if needed ) Clonazepam (Klonopin), 0.5 MG PO TID - Take the following medications as scheduled the night before surgery: Metoprolol Tartrate (Lopressor), 100 MG PO BID Multiple Vitamin (Multivitamin), 1 TAB PO QPM Simvastatin (Simvastatin), 1 TAB PO HS [Proair], 2 PUFFS INH QID PRN for SOB/Wheezing (if needed) Albuterol Sulfate (Albuterol Sulfate), 1 VIAL NEB UD PRN for Wheezing (if needed ) Clonazepam (Klonopin), 0.5 MG PO TID If you have any questions please call us at [phone] or [phone] or [phone]
[2017-07-23 14:49] LABS: BUN/CREATININE RATIO 18.9 (10-20); CALCIUM 9.2 mg/dl (8.5-10.1); CREATININE 1.01 mg/dl (0.60-1.20); POTASSIUM 4.1 mmol/L (3.5-5.1)
[~2017-08-02] VITALS: Ht 157.5 cm; Wt 88.5 kg
[~2017-08-02] MED LIST changes: +ATROPINE SULFATE 0.1 MG/ML 5ML SYR IV PRN; -CHN/1 PO; +EpHEDrine SULFATE INJ 50 MG/ML AMP IV PRN; +FENTANYL CITRATE INJ 50 MCG/1 ML 2 ML VIAL ONE; +GLYCOPYRROLATE INJ 0.2 MG/ML VIAL ONE; +LACTATED RINGER'S 1000ML 1,000 ML IV SCH; +LIDOCAINE HCL 2% 2 ML VIAL (20MG/ML) ONE; -LISI5TAB PO; +MIDAZOLAM HCL 1 MG/ML 2ML VIAL ONE; +NEOSTIGMINE METHYLSULFATE 5 MG/5 ML SYR ONE; +ONDANSETRON INJ 2 MG/ML 2 ML VIAL ONE; +PROPOFOL IV EMULSION 10 MG/ML 20 ML VIAL IV ONE; +ROCURONIUM BROMIDE 10 MG/ML 5 ML VIAL IV ONE
[2017-08-02 05:55] VITALS: BP 145/78; PULSE 59; TEMP 36.7; O2SAT 95; Ht 157.5 cm; Wt 88.5 kg
--- NOTE | 2017-08-02 06:49 | History and Physical ---
History & Physical Date of Service Aug 02, 2017. History & Physical Reason for visit: EBUS w/ ENB History of present illness: Patient is a 61-year-old male presenting to the hospital today for EBUS w/ENB for concerns of new pulmonary nodules. 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 That time, patient did not receive any radiation or chemotherapy. She has been followed by serial CT scans since that time. The patient has never had a PET-CT scan. The patient follows with Dr. Forrest for BERTHA and asthma. She recently has had no worsening pulmonary function or symptoms. Patient is a former smoker. She states that she quit approximately 10 years ago , but then she picked it up again approximately 5 years ago and has been on and off. She is currently not smoking. She denies fever, sweats, chills, night sweats weight loss,, persistent cough, increasing shortness, or dyspnea on exertion. Her past medical history was reviewed in detail today. Her previous scans were also viewed today and reviewed with Dr. Rowland. Her scan from 05/19/2016 showed scar tissue where previous right middle lobectomy was completed along mildly enlarged mediastinal lymph node. No nodularity was seen the previous exam. Her scan from 07/09/17 showed interval development of nodular opacity in the anterior segment of the RUL concerning for recurrent disease. Associated new right hilar lymphadenopathy and subcarinal lymph nodes were noted to be enlarged. Patient did also have a PET/CT scan on 07/24/2017 which showed tiny focus of nodularity in the right upper lung which were slightly too small for characterization. The largest did demonstrate mild FDG activity. No pathologically enlarged mediastinal or hilar lymph nodes were noted. Low level FDG activity localized to the right hilum was also noted and was nonspecific. No evidence of extrathoracic metastatic disease was noted. Past medical history: Abnormal computed tomography scan (R93.8) Actinic keratosis (L57.0) Anxiety disorder (F41.9) Asthma (J45.909) Carcinoid tumor, bronchus, lung, malignant (C7A.090) Coronary artery disease (I25.10) Depression (F32.9) Denied: History of Difficulty reading due to visual problem Diverticulosis (K57.90) Encounter for routine gynecological examination (Z01.419) Excessive daytime sleepiness (G47.19) Denied: History of Hearing difficulty Hypercholesterolemia (E78.00) Hyperplastic colon polyp (K63.5) Hypertension (I10) Influenza vaccine needed (Z23) Internal hemorrhoids (K64.8) History of Lipoma of colon (D17.5) Myalgia (M79.1) Obstructive sleep apnea (G47.33) Pap smear abnormality of cervix with ASCUS favoring benign (R87.610) Snoring (R06.83) Type 2 diabetes mellitus (E11.9) 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) Vitamin D deficiency (E55.9) History of Acute low back pain (M54.5) History of Acute upper respiratory infection (J06.9) History of Asthma exacerbation (J45.901) History of Asthma exacerbation (J45.901) History of Asthma exacerbation (J45.901) History of Asthmatic bronchitis with exacerbation (J45.901) History of Bilateral calf pain (M79.661,M79.662) History of Cough (R05) Denied: History of Difficulty reading due to visual problem Denied: History of Hearing difficulty History of acute bronchitis (Z87.09) History of acute sinusitis (Z87.09) History of atopic dermatitis (Z87.2) History of chest pain (Z87.898) History of diarrhea (Z87.898) History of fatigue (Z87.898) History of insomnia (Z87.898) History of intermittent claudication (Z86.79) History of low back pain (Z87.39) History of nicotine dependence (Z87.891) History of pneumonia (Z87.01) History of tinea corporis (Z86.19) History of urinary frequency (Z87.898) History of Influenza vaccine needed (Z23) History of Leg weakness, bilateral (R29.898) History of Lipoma of colon (D17.5) History of Lung infiltrate on CT (R91.8) History of Need for DTP vaccine (Z23) History of Need for hepatitis C screening test (Z11.59) History of PPD positive (R76.11) History of Reported Positive Pap Smear History of Tuberculosis 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 Former smoker Allergies: No Known Drug Allergies Current medications: 1. Chantix Continuing Month Codey 1 MG Oral Tablet; TAKE 1 TABLET TWICE DAILY 2. ClonazePAM 0.5 MG Oral Tablet; TAKE 1 TABLET 3 TIMES DAILY NEEDED 3. Symbicort 80-4.5 MCG/ACT Inhalation Aerosol; INHALE 2 PUFFS TWICE DAILY. RINSE MOUTH AFTER USE 4. Clopidogrel Bisulfate 75 MG Oral Tablet; TAKE 1 TABLET DAILY 5. FLUoxetine HCl - 40 MG Oral Capsule; TAKE 1 CAPSULE Daily 6. Chromium TABS; 250MCG ONCE DAILY 7. Simvastatin 20 MG Oral Tablet; Take 1 tablet daily 8. Metoprolol Tartrate 50 MG Oral Tablet; Take 1 tablet twice a day 9. ProAir HFA 108 (90 Base) MCG/ACT Inhalation Aerosol Solution; INHALE 1 TO 2 PUFFS EVERY 4 TO 6 HOURS NEEDED 10. Aspirin EC 81 MG Oral Tablet Delayed Release; TAKE 1 TABLET DAILY 11. Methocarbamol 500 MG Oral Tablet; TAKE 1 TABLET 4 times daily PRN 12. Chantix Starting Month Codey 0.5 MG X 11 & 1 MG X 42 Oral Tablet; TAKE ONE 0.5MG TABLET DAILY ON DAYS 1-3, THEN ONE 0.5MG TABLET TWICE DAILY ON DAYS 4-7, THEN ONE 1MG TABLET TWICE DAILY THEREAFTER 13. Albuterol Sulfate (2.5 MG/3ML) 0.083% Inhalation Nebulization Solution; USE 1 UNIT DOSE EVERY 4-6 HOURS NEEDED FOR WHEEZING 14. Ketoconazole 2 % External Cream; APPLY SPARINGLY TO AFFECTED AREA(S) TWICE DAILY 15. MetFORMIN HCl - 500 MG Oral Tablet; TAKE 2 TABLETS EVERY 12 HOURS 16. OneTouch Ultra Blue In Vitro Strip; TEST ONCE DAILY 17. Calcium 500 TABS 18. D 5000 CAPS; TAKE DIRECTED 19. Fish Oil OIL 20. Magnesium Oxide 400 MG Oral Tablet 21. Multivitamins CAPS 22. Vitamin B Complex TABS Physical exam: General: Patient is awake, alert, cooperative, and in no acute distress. Well developed. Well-nourished. Skin: Normal appearance, texture, and temperature. No apparent rash or ecchymoses. HEENT: Normocephalic and atraumatic. Eyes are anicteric and non-erythematous. EOMI c PERRLA. Hearing intact and without difficulty. Nose appears normal and without drainage. Trachea midline. Thyroid appears normal, and neck is supple. Lungs: Very mild wheeze the bilateral upper lobes. No accessory muscle use. Chest is nontender to palpation Heart: Regularly regular. No S3/S4, rubs, murmurs, or gallops appreciated. Abdomen: Active bowel sounds heard throughout all 4 quadrants. Abdomen is soft and nontender with no organomegally or masses to palpation. Extremities: No cyanosis or edema. Gait normal and without difficulty. Freely moving extremities during exam. Neuro: Alert and oriented X3. CN II-XII grossly intact. Sensation and motor function grossly intact. Psych: Mood and affect are normal. Assessment and plan: Pulmonary nodule, history of lung cancer, former smoker Plan for EBUS w/ENB today to evaluate new nodularity of the right upper lobe and right hilum FDG avidity.
--- NOTE | 2017-08-02 07:15 | History & Physical Bridge Note ---
H&P Re-Evaluation Bridge Note: I have examined the patient, reviewed the History & Physical and in the interval since the performance of the History & Physical I have noted the following changes of clinical significance: The patient and I discussed her cardiac risk factors and she informed me she has been off off Plavix since Sunday and aspirin 81 mg for the past month. At this time we'll proceed forward with the Barbara/ENB portion of this evaluation as well as posterior navigational bronchoscopy with transbronchial biopsies, fine-needle aspiration, cytology brushing and bronchial lavage.
--- NOTE | 2017-08-02 08:57 | Bronchoscopy Procedure Note ---
Bronchoscopy Procedure Note Procedure: Flexible-Bronchoscopy, EBUS, FNA, BAL Consent: Obtained through the patient placed into the chart Pre-Procedural Dx: Lung nodule with mediastinal adenopathy Post-Procedural Dx: Lung carcinoma Analgesia: GETA Sedation: GETA Procedure: The Olympus video bronchoscope and EBUS scope were used for this procedure Initially the flexible bronchoscope was used for evaluation of the airways. The ET tube was notably 4 cm above the level of the yasmine. Trachea: Visualized portion of the trachea was anatomically within normal limits Yasmine: Anatomically within normal limits Right bronchial tree: Right mainstem bronchus: Anatomically within normal limits Right upper lobe: Anatomically within normal limits Bronchus intermedius: Anatomically within normal limits Right middle lobe: Anatomically within normal limits Right lower lobe: Anatomically within normal limits Findings: No significant findings noted Left bronchial tree: Left mainstem bronchus: Anatomically within normal limits Left upper lobe: Anatomically within normal limits Lingula: Anatomically within normal limits Left lower lobe: Anatomically within normal limits Findings: No significant findings noted EBUS/MATIAS: FNA Anca Stations: 7: # of passes 5 4R: # of passes 7 12L: # of passes 3 BAL: RB3 EBL: 2 cc Complications: None Follow-up: PACU
--- NOTE | 2017-08-02 09:02 | Discharge Instructions ---
Discharge Instructions Date of Service Aug 02, 2017. (Rosa Melendez PA-C) Admission Reason for Admission: History Of Lung Cancer, Pulmonary Nodules (Rosa Melendez PA-C) Discharge Discharge Diagnosis / Problem: History of Lung cancer, Pulmonary Nodule (Rosa Melendez PA-C) Discharge Goals Goal(s): Diagnostic testing (Rosa Melendez PA-C) Activity Recommendations Activity Limitations: resume your previous activity . (Rosa Melendez PA-C) Instructions / Follow-Up Instructions / Follow-Up Follow up with Rosa Melendez PA-C at [facility] Pul[facility] (Rosa Melendez PA-C) Current Hospital Diet Patient's current hospital diet: Regular Diet (Rosa Melendez PA-C) Discharge Diet Recommended Diet: Regular Diet (Rosa Melendez PA-C) Procedures Procedures Performed: Flexible Bronchoscopy, Endobronchial Ultrasound Guided Biopsy, Transtracheal/Transbronchial Fine Needle Aspiration, Bronchial Lavage (Rosa Melendez PA-C) Pending Studies Studies pending at discharge: no (Rosa Melendez PA-C) Medical Emergencies . Who to Call and When: Medical Emergencies: If at any time you feel your situation is an emergency, please call 911 immediately. . (Rosa Melendez PA-C) Non-Emergent Contact Non-Emergency issues call your: Primary Care Provider . (Rosa Melendez PA-C) . "Provider Documentation" section prepared by Rosa Melendez. . (Rosa Melendez PA-C) VTE Core Measure Inpt VTE Proph given/why not?: Other Anticoagulation (Plavix and aspirin as previously prescribed) (Rosa Melendez PA-C)
--- NOTE | 2017-08-02 09:46 | Anesthesiology Progress Note ---
Anesthesia Post Op Note Date & Time Aug 02, 2017 at 09:46 Vital Signs Pain Intensity: 0 Vital Signs Past 12 Hours Date Time Temp Pulse Resp B/P (MAP) Pulse Ox O2 Delivery O2 Flow Rate FiO2 08/02/17 09:36 36.7 54 17 130/83 98 Nasal Cannula 4 08/02/17 09:27 55 17 127/76 98 Nasal Cannula 4 08/02/17 09:17 61 22 121/76 95 Nasal Cannula 4 08/02/17 09:07 36.0 71 24 138/78 93 Nasal Cannula 4 08/02/17 05:55 36.7 59 18 145/78 (100) 95 Room Air Notes Mental Status: alert / awake / arousable, participated in evaluation Pt Amnestic to Procedure: Yes Nausea / Vomiting: adequately controlled Pain: adequately controlled Airway Patency, RR, SpO2: stable & adequate BP & HR: stable & adequate Hydration State: stable & adequate Anesthetic Complications: no major complications apparent
[2017-08-02 09:47] VITALS: BP 123/68; PULSE 57; TEMP 36.7; O2SAT 98
[2017-08-02 10:10] VITALS: BP 118/72; PULSE 61; O2SAT 98
[2017-08-02 10:40] VITALS: BP 112/68; PULSE 60; TEMP 36.7; O2SAT 98
== END | disposition home or self-care (01) ==
LOC: C.ACU 05:30
PROVIDERS: ATTEND Internal Medicine Critical Care Medicine
DX: C77.1 Secondary and unspecified malignant neoplasm of intrathoracic lymph nodes (principal); J44.9 Chronic obstructive pulmonary disease, unspecified; I25.10 Atherosclerotic heart disease of native coronary artery without angina pectoris; E11.9 Type 2 diabetes mellitus without complications; I10 Essential (primary) hypertension; F32.9 Major depressive disorder, single episode, unspecified; E78.00 Pure hypercholesterolemia, unspecified; G47.33 Obstructive sleep apnea (adult) (pediatric); Z68.35 Body mass index [BMI] 35.0-35.9, adult; E66.9 Obesity, unspecified; Z85.118 Personal history of other malignant neoplasm of bronchus and lung; Z90.2 Acquired absence of lung [part of]; Z90.710 Acquired absence of both cervix and uterus; Z87.891 Personal history of nicotine dependence; Z79.02 Long term (current) use of antithrombotics/antiplatelets; Z79.82 Long term (current) use of aspirin; Z79.899 Other long term (current) drug therapy; F41.9 Anxiety disorder, unspecified

== ENCOUNTER → 2017-08-31 | Outpatient (CLI) | payer OTHER ==
[~2017-08-31] MED LIST changes: +ALBU18002 INH; -ATROPINE SULFATE 0.1 MG/ML 5ML SYR IV PRN; +B-COCAP2 PO; +CHOL1TAB42 PO; -CLON0.5T3 PO; +ERGO500037 PO; -EpHEDrine SULFATE INJ 50 MG/ML AMP IV PRN; -FENTANYL CITRATE INJ 50 MCG/1 ML 2 ML VIAL ONE; +GADAVIST IV PRN; -GLYCOPYRROLATE INJ 0.2 MG/ML VIAL ONE; +HYDR-5688 PO; +KLN/5 PO; -LACTATED RINGER'S 1000ML 1,000 ML IV SCH; -LIDOCAINE HCL 2% 2 ML VIAL (20MG/ML) ONE; +MAGN400T6 PO; -MIDAZOLAM HCL 1 MG/ML 2ML VIAL ONE; -NEOSTIGMINE METHYLSULFATE 5 MG/5 ML SYR ONE; -ONDANSETRON INJ 2 MG/ML 2 ML VIAL ONE; -PROPOFOL IV EMULSION 10 MG/ML 20 ML VIAL IV ONE; -ROCURONIUM BROMIDE 10 MG/ML 5 ML VIAL IV ONE; +SYMIN/8045 INH
--- NOTE | 2017-08-31 10:37 | DIAGNOSTIC IMAGING REPORT ---
MRI OF THE BRAIN WITHOUT AND WITH IV CONTRAST CLINICAL HISTORY: Lung cancer. Evaluate for metastatic disease. COMPARISON STUDY: Head CT March 01, 2013. TECHNIQUE: Utilizing a 1.5 Debra magnet and dedicated coil, multiplanar, multiecho imaging of the brain was performed pre and postcontrast administration. IV administration of 8.5 mL of Gadavist contrast was uneventful. FINDINGS: There are no foci of restricted diffusion. No acute intracranial hemorrhage, midline shift or mass effect is present. Brain volume is normal for age. Ventricular system is normal. Basilar cisterns are patent. There are no extra-axial collections. Flow-voids for the major intracranial vessels are present. There is no intracranial mass or pathologic enhancement. No areas of significant signal abnormality are present. Calvarial signal is normal. Orbits and sinuses are unremarkable. IMPRESSION: No evidence of metastatic disease. Electronically signed by: kIe Bell M.D. 08/31/2017 10:35 AM Dictated Date/Time: 08/31/2017 10:31 AM
== END | disposition home or self-care (01) ==
PROVIDERS: ATTEND Radiology Radiation Oncology
DX: C34.11 Malignant neoplasm of upper lobe, right bronchus or lung (principal)

== ENCOUNTER → 2017-09-11 | Outpatient (CLI) | payer OTHER ==
[~2017-09-11] MED LIST changes: -B-COCAP2 PO; +CLON0.5T3 PO; -ERGO500037 PO; -GADAVIST IV PRN; -HYDR-5688 PO; -KLN/5 PO
--- NOTE | 2017-09-11 17:34 | PULMONARY FUNCTION TEST ---
INTERPRETATION BASED OFF ATS CRITERIA SPIROMETRY: Within normal limits. LUNG VOLUMES: Within normal limits. DIFFUSION CAPACITY: Mildly reduced at 60% but corrects off alveolar volume. INTERPRETATION: Suggests possible pulmonary vascular disorder/cardiac disease. Clinical correlation required.
== END | disposition home or self-care (01) ==
LOC: C.RC 13:02
PROVIDERS: ATTEND Nurse Practitioner Acute Care
DX: C34.11 Malignant neoplasm of upper lobe, right bronchus or lung (principal)

== ENCOUNTER → 2017-09-17 | Day surgery (SDC) | payer OTHER ==
[2017-09-13 10:53] VITALS: BMI 35.0
[~2017-09-17] VITALS: Ht 157.5 cm; Wt 86.4 kg
[~2017-09-17] MED LIST changes: +ALBUT/IPRATROP 3MG/0.5MG NEB 3 ML VIAL INH ONE; +ATROPINE SULFATE 0.1 MG/ML 5ML SYR IV PRN; +CEFAZOLIN 2000MG IV PUSH 10 ML IV SCH; +CEFAZOLIN SOD 1 GM VIAL ONE; +EpHEDrine SULFATE INJ 50 MG/ML AMP IV PRN; +FENTANYL CITRATE INJ 50 MCG/1 ML 2 ML VIAL IV PRN; +FENTANYL CITRATE INJ 50 MCG/1 ML 2 ML VIAL ONE; +HEPARIN SOD (PORCINE) 1000 UNIT/ML 10 ML VIAL ONE; +HYDR-5688 PO; +HYDROCODONE/ACETAMOPHEN 5/325MG TAB PO PRN; +LACTATED RINGER'S 1000ML 1,000 ML IV SCH; +LIDOCAINE HCL 1% 20 ML VIAL ONE; +LIDOCAINE HCL 2% 2 ML VIAL (20MG/ML) ONE; +MIDAZOLAM HCL 1 MG/ML 2ML VIAL ONE; +MoRPHine SULFATE 2 MG/ML CARP IV PRN; +ONDANSETRON INJ 2 MG/ML 2 ML VIAL IV PRN; +ONDANSETRON INJ 2 MG/ML 2 ML VIAL ONE; +PROPOFOL IV EMULSION 10 MG/ML 20 ML VIAL IV ONE; +THROMBIN FOR SOLN 20000 UNIT KIT ONE
[2017-09-17 08:20] VITALS: BP 168/72; PULSE 60; TEMP 37.1; O2SAT 95; Ht 157.5 cm; Wt 86.4 kg
[2017-09-17 09:25] VITALS: PULSE 60; O2SAT 96
--- NOTE | 2017-09-17 09:35 | History & Physical Bridge Note ---
H&P Re-Evaluation Bridge Note: I have examined the patient, reviewed the History & Physical and in the interval since the performance of the History & Physical I have noted the following changes of clinical significance: No changes noted
--- NOTE | 2017-09-17 09:37 | Discharge Instructions ---
Discharge Instructions Date of Service Sep 17, 2017. Visit Reason for Visit: Lung Cancer, Type 2 Diabetic Discharge Discharge Diagnosis / Problem: A-port Discharge Goals Goal(s): Improve disease control Activity Recommendations Activity Limitations: as noted below Shower/Bathe: keep incision dry (for 2 days) Anesthesia . Post Anesthesia Instructions: If you have had General Anesthesia or IV Sedation: * Do not drive today. * Resume driving when surgeon permits. * Do not make important decisions or sign legal documents today. * Call surgeon for: 1. Temperature elevations greater than 101 degrees F. 2. Uncontrollable pain. 3. Excessive bleeding. 4. Persistent nausea and vomiting. 5. Medication intolerance (nausea, vomiting or rash). * For nausea and vomiting use only clear liquids such as: tea, soda, bouillon until nausea subsides, then gradually increase diet as tolerated. * If you have any concerns or questions, call your surgeon's office. If physician is unavailable and it is an emergency, call 911 or go to the nearest emergency room. . Instructions / Follow-Up Instructions / Follow-Up Dr. Montelongo's office in 2 weeks for suture removal, call [phone] if you do not already have an appt OK for the port to be used Restart Plavix in 2 days Diet Recommendations Recommended Home Diet: no limitations Pending Studies Studies pending at discharge: no Medical Emergencies . Who to Call and When: Medical Emergencies: If at any time you feel your situation is an emergency, please call 911 immediately. . Non-Emergent Contact Non-Emergency issues call your: Surgeon Call Non-Emergent contact if: you have a fever, temperature is above 101.5, your pain is not controlled, wound has increased redness, you have any medication questions . . "Provider Documentation" section prepared by Donnell Carias. .
--- NOTE | 2017-09-17 10:30 | [facility] Operative Report ---
Operative Report Operative Date Sep 17, 2017. Pre-Operative Diagnosis Squamous cell carcinoma of lunc Post-Operative Diagnosis Squamous cell carcinoma of lung Procedure(s) Performed A port insertion, Left Cephalic Vein Surgeon Dr. Montelongo Workforce Development Vice President Surgeon(s) none Estimated Blood Loss 5 cc Findings placed via Lt cephalic vein Specimens none per surgeon Anesthesia local/ sedation Complication(s) None Disposition Recovery Room / PACU I attest to the content of the Intraoperative Record and any orders documented therein. Any exceptions are noted below.
--- NOTE | 2017-09-17 10:39 | OPERATIVE REPORT ---
DATE OF OPERATION: 09/17/2017 NAME OF OPERATION: Port placement. PREOPERATIVE DIAGNOSIS: Lung cancer. POSTOPERATIVE DIAGNOSIS: Same. STAFF SURGEON: Josh Montelongo MD. ANESTHESIA: 1% plain lidocaine with sedation. DESCRIPTION OF PROCEDURE: The patient was brought in the operating room and placed on the operating table in supine position. Her left chest was prepped and draped in usual fashion. 1% plain lidocaine was used to anesthetize skin and subcutaneous tissue over the left deltopectoral groove. Incision made carrying dissection down through significant adipose tissue, identifying the cephalic vein which was somewhat small. It was ligated distally using 2-0 silk suture then partially opened under fluoroscopy. I was able to pass the catheter down into the proximal superior vena cava. Then a pocket was fashioned in the subcutaneous tissue and a catheter attached to the port. Port placed into the pocket and secured to the subcutaneous tissue using 3-0 Prolene suture. The port was aspirated and flushed with heparinized solution. The port site irrigated with antibiotic solution. Then the subcutaneous tissue reapproximated using 2-0 plain and chromic suture and then the skin reapproximated using 4-0 nylon suture. The patient was transferred to recovery room in stable condition. I attest to the content of the Intraoperative Record and any orders documented therein. Any exception s are noted below.
--- NOTE | 2017-09-17 10:55 | DIAGNOSTIC IMAGING REPORT ---
SINGLE VIEW CHEST CLINICAL HISTORY: Infusion port placement. FINDINGS: An AP, portable, upright chest radiograph is compared to study dated 02/03/2015 and correlated with chest CT dated 07/09/2017. The examination is degraded by portable technique, apical lordotic positioning, and patient rotation. A left subclavian central venous infusion port has been placed. The tip of the catheter projects over the cavoatrial junction. The heart is enlarged and there is atherosclerotic calcification of the thoracic aorta. The pulmonary vasculature is noncongested. Emphysema and chronic interstitial thickening are similar to previous. Findings suggest previous right-sided pulmonary resection. Scarring is noted in the right upper lobe. Nodularity is seen in the right suprahilar region. No airspace consolidation is seen typical for pneumonia and there is no large pleural effusion. No pneumothorax is seen. The skeletal structures are osteopenic. The bony thorax is grossly intact. IMPRESSION: 1. A left subclavian central venous infusion port has been placed as above. No pneumothorax is seen post procedure. 2. Cardiomegaly and emphysema. No acute cardiopulmonary abnormality is identified. Electronically signed by: Tejas Guardado M.D. 09/17/2017 10:54 AM Dictated Date/Time: 09/17/2017 10:52 AM
--- NOTE | 2017-09-17 11:00 | Anesthesiology Progress Note ---
Anesthesia Post Op Note Date & Time Sep 17, 2017 at 11:00 Vital Signs Pain Intensity: 0 Vital Signs Past 12 Hours Date Time Temp Pulse Resp B/P (MAP) Pulse Ox O2 Delivery O2 Flow Rate FiO2 09/17/17 10:50 36.1 56 14 107/64 95 Room Air 09/17/17 10:40 54 15 97/53 (62) 99 Oxymask 10 09/17/17 10:34 36.1 57 18 97/59 (64) 99 Oxymask 10 09/17/17 09:25 60 16 96 Room Air 09/17/17 08:20 37.1 60 20 168/72 (104) 95 Room Air Notes Mental Status: alert / awake / arousable, participated in evaluation Pt Amnestic to Procedure: Yes Nausea / Vomiting: adequately controlled Pain: adequately controlled Airway Patency, RR, SpO2: stable & adequate BP & HR: stable & adequate Hydration State: stable & adequate Anesthetic Complications: no major complications apparent
[2017-09-17 11:03] VITALS: BP 112/55; PULSE 54; TEMP 36.9; O2SAT 93
[2017-09-17 11:33] VITALS: BP 95/62; PULSE 58; TEMP 36.9; O2SAT 96
== END | disposition home or self-care (01) ==
LOC: C.ACU 08:07
PROVIDERS: ATTEND Surgery
DX: C7A.090 Malignant carcinoid tumor of the bronchus and lung (principal); I25.10 Atherosclerotic heart disease of native coronary artery without angina pectoris; J45.909 Unspecified asthma, uncomplicated; G47.33 Obstructive sleep apnea (adult) (pediatric); I65.29 Occlusion and stenosis of unspecified carotid artery; G47.19 Other hypersomnia; R01.1 Cardiac murmur, unspecified; E78.00 Pure hypercholesterolemia, unspecified; I10 Essential (primary) hypertension; E11.9 Type 2 diabetes mellitus without complications; N89.0 Mild vaginal dysplasia; E55.9 Vitamin D deficiency, unspecified; F32.9 Major depressive disorder, single episode, unspecified; F41.9 Anxiety disorder, unspecified; Z95.5 Presence of coronary angioplasty implant and graft; Z87.891 Personal history of nicotine dependence; Z79.02 Long term (current) use of antithrombotics/antiplatelets; Z79.82 Long term (current) use of aspirin; Z79.84 Long term (current) use of oral hypoglycemic drugs; Z79.899 Other long term (current) drug therapy

== ENCOUNTER → 2017-09-25 | Outpatient (CLI) | payer OTHER ==
[~2017-09-25] MED LIST changes: -ALBUT/IPRATROP 3MG/0.5MG NEB 3 ML VIAL INH ONE; -ATROPINE SULFATE 0.1 MG/ML 5ML SYR IV PRN; -CEFAZOLIN 2000MG IV PUSH 10 ML IV SCH; -CEFAZOLIN SOD 1 GM VIAL ONE; -CLOP1TAB15 PO; -EpHEDrine SULFATE INJ 50 MG/ML AMP IV PRN; -FENTANYL CITRATE INJ 50 MCG/1 ML 2 ML VIAL IV PRN; -FENTANYL CITRATE INJ 50 MCG/1 ML 2 ML VIAL ONE; -HEPARIN SOD (PORCINE) 1000 UNIT/ML 10 ML VIAL ONE; -HYDROCODONE/ACETAMOPHEN 5/325MG TAB PO PRN; -LACTATED RINGER'S 1000ML 1,000 ML IV SCH; -LIDOCAINE HCL 1% 20 ML VIAL ONE; -LIDOCAINE HCL 2% 2 ML VIAL (20MG/ML) ONE; -MIDAZOLAM HCL 1 MG/ML 2ML VIAL ONE; -MoRPHine SULFATE 2 MG/ML CARP IV PRN; -ONDANSETRON INJ 2 MG/ML 2 ML VIAL IV PRN; -ONDANSETRON INJ 2 MG/ML 2 ML VIAL ONE; -PROPOFOL IV EMULSION 10 MG/ML 20 ML VIAL IV ONE; -THROMBIN FOR SOLN 20000 UNIT KIT ONE
[2017-09-25 12:11] LABS: BASO % 0.3 %; BASO ABS # 0.02 K/uL (0-0.2); EOS % 0.7 %; EOS ABS # 0.05 K/uL (0-0.5); HEMATOCRIT 43.5 % (37-47); HEMOGLOBIN 14.6 g/dL (12.0-16.0); LYMPH % 37.7 %; LYMPH ABS # 2.55 K/uL (1.2-3.4); MEAN CELL VOLUME 94.4 fL (80-100); MEAN CORPUSCULAR HEMOGLOBIN 31.7 pg (25-34); MEAN CORPUSCULAR HGB CONC 33.6 g/dl (32-36); MEAN PLATELET VOLUME 9.4 fL (7.4-10.4); MONO ABS # 0.54 K/uL (0.11-0.59); NEUT % 53.3 %; PLATELET COUNT 248 K/uL (130-400); RED CELL DISTRIBUTION WIDTH CV 13.9 % (11.5-14.5); RED CELL DISTRIBUTION WIDTH SD 47.3 fL (36.4-46.3); WHITE BLOOD COUNT 6.76 K/uL (4.8-10.8)
[2017-09-25 12:27] LABS: HEMOGLOBIN A1C 6.7 % (4.5-5.6)
[2017-09-25 12:51] LABS: ALBUMIN 3.8 gm/dl (3.4-5.0); ALT/SGPT 27 U/L (12-78); AST/SGOT 13 U/L (15-37); BLOOD UREA NITROGEN 14 mg/dl (7-18); CALCIUM 9.7 mg/dl (8.5-10.1); CARBON DIOXIDE 28 mmol/L (21-32); CREATININE 0.91 mg/dl (0.60-1.20); GLUCOSE 111 mg/dl (70-99); POTASSIUM 4.7 mmol/L (3.5-5.1); SODIUM 132 mmol/L (136-145)
[2017-09-25 13:00] LABS: ALKALINE PHOSPHATASE 96 U/L (45-117); CHOLESTEROL 210 mg/dl (0-200); LDL CHOLESTEROL CALCULATED 104 mg/dl
== END | disposition home or self-care (01) ==
LOC: C.LAB1850 10:59
PROVIDERS: ATTEND Nurse Practitioner Family
DX: E11.9 Type 2 diabetes mellitus without complications (principal); E78.00 Pure hypercholesterolemia, unspecified; I10 Essential (primary) hypertension; E55.9 Vitamin D deficiency, unspecified

== ENCOUNTER → 2017-10-26 | Outpatient (CLI) | payer OTHER ==
[~2017-10-26] MED LIST changes: -CHOL1TAB42 PO; +ERGO500037 PO; +OPTIRAY 320 IV PRN
--- NOTE | 2017-10-26 12:32 | DIAGNOSTIC IMAGING REPORT ---
CT SCAN OF THE CHEST WITH IV CONTRAST CLINICAL HISTORY: Follow-up lung cancer. COMPARISON STUDY: Chest CT scans dated 07/09/2017 and 12/30/2014. PET CT dated 07/23/2017. TECHNIQUE: Following the IV administration of 105 cc of Optiray 320, CT scan of the thorax was performed from the thoracic inlet to the upper abdomen. Images are reviewed in the axial, sagittal, and coronal planes. IV contrast was administered without complication. A dose lowering technique was utilized adhering to the principles of ALARA. The examination is degraded by streak artifact from the right arm which could not be elevated above the chest. CT DOSE: 2335.97 mGy.cm FINDINGS: Thyroid: Imaged portions of the thyroid gland are normal in size and attenuation. Thoracic aorta: There is atherosclerotic calcification of the thoracic aorta, which is normal in caliber and demonstrates standard 3-vessel arch anatomy. No dissection is seen. Pulmonary vasculature: The pulmonary trunk is normal in caliber. There are no filling defects identified in the central pulmonary vessels to indicate pulmonary embolus. Note that this examination was not protocoled for evaluation of the pulmonary arteries. Heart: The heart is normal in size and configuration, and without pericardial effusion. There is lipomatous hypertrophy of the interatrial septum. The coronary arteries are densely calcified. Lungs and pleural spaces: Emphysematous changes observed and there has been previous right-sided pulmonary resection with scarring in the right midlung. No airspace consolidation or pleural effusion is identified. Foci of nodularity in the right upper lobe is completely resolved as compared to 07/09/2017. Minimal residual nodularity seen on image #108. This measures up to 3 mm in thickness. No left-sided pulmonary lesion is identified. The trachea and central airways are clear. Mild diffuse peribronchial thickening suggests reactive airway disease. Mediastinum: A pretracheal node on image #100 measures 1.7 cm in short axis. Helga: Mildly enlarged right hilar nodes measure up to 1.2 cm in short axis. Axillae: There is no axillary lymphadenopathy. Upper abdomen: There is evidence of hepatic steatosis. A tiny hiatal hernia is identified. No adrenal lesion is seen. Skeletal structures: No left hilar adenopathy is seen. The skeletal structures are osteopenic. Degenerative change is seen throughout the thoracic spine. No lytic or blastic bony lesions are seen. IMPRESSION: 1. Emphysema and postoperative change from right-sided pulmonary resection. 2. Foci of nodularity in the right upper lung have almost completely resolved as compared to 07/09/2017. Continued attention at follow-up is recommended. 3. Mildly enlarged mediastinal and right hilar nodes have decreased in size from 07/09/2017. 4. Findings suggest hepatic steatosis. Electronically signed by: Tejas Guardado M.D. 10/26/2017 12:31 PM Dictated Date/Time: 10/26/2017 12:15 PM
--- NOTE | 2017-10-26 13:14 | DIAGNOSTIC IMAGING REPORT ---
CT SCAN OF THE ABDOMEN AND PELVIS WITH IV CONTRAST CLINICAL HISTORY: Lung cancer. COMPARISON STUDY: PET/CT dated 07/23/2017. TECHNIQUE: Following the IV administration of 105 cc of Optiray 320, CT scan of the abdomen and pelvis is performed from the lung bases to the proximal femora. Images are reviewed in the axial, sagittal, and coronal planes. IV contrast was administered without complication. A dose lowering technique was utilized adhering to the principles of ALARA. FINDINGS: Lung bases: The heart is normal in size and without pericardial effusion. There is lipomatous hypertrophy of the interatrial septum. The coronary arteries are densely calcified. The lung bases are clear noting bibasilar scarring versus atelectasis. There is a tiny hiatal hernia. Liver: The contrast-enhanced liver is enlarged, measuring 19.8 cm in length. The liver demonstrates diffusely diminished attenuation consistent with hepatic steatosis. There is no intrahepatic biliary ductal dilatation. The hepatic veins and portal veins are patent. Gallbladder: Unremarkable. Spleen: Normal in size and attenuation. Pancreas: Unremarkable. Adrenal glands: Unremarkable. Kidneys: The contrast enhanced kidneys demonstrate mild cortical atrophy and are without hydronephrosis. The kidneys enhance symmetrically. A subcentimeter cortical hypodensity in the right kidney likely represents a cyst but is too small for definitive characterization. Abdominal vasculature: The abdominal aorta is normal in course and caliber noting advanced atherosclerotic calcification. Bowel: There is mild to moderate colonic diverticulosis without CT evidence of acute diverticulitis. Mild colonic fecal retention is observed. No bowel obstruction is seen. The appendix is well-visualized and normal. Peritoneum: There is no intraperitoneal free air or abdominal ascites. There is a small fat-containing umbilical hernia. Lymphadenopathy: None. Pelvic viscera: The bladder is decompressed and grossly unremarkable. The uterus is surgically absent. No adnexal lesion is seen. Skeletal structures: The skeletal structures are osteopenic. Mild lumbosacral spondylosis is observed. No lytic or blastic lesions are seen. IMPRESSION: 1. There is no evidence of intra-abdominal metastatic disease. 2. There are no acute infectious or inflammatory findings in the abdomen or pelvis. 3. Hepatomegaly and hepatic steatosis. 4. Mild to moderate colonic diverticulosis without CT evidence of acute diverticulitis. Electronically signed by: Tejas Guardado M.D. 10/26/2017 1:12 PM Dictated Date/Time: 10/26/2017 1:08 PM
== END | disposition home or self-care (01) ==
LOC: C.CTS 11:17
PROVIDERS: ATTEND Internal Medicine Hematology & Oncology
DX: C34.11 Malignant neoplasm of upper lobe, right bronchus or lung (principal)

== ENCOUNTER → 2017-11-28 | Outpatient (CLI) | payer OTHER ==
[~2017-11-28] MED LIST changes: +B-CO1CAP17 PO; -OPTIRAY 320 IV PRN
[2017-11-28 13:51] VITALS: BP 149/84; PULSE 88; TEMP 36.7; O2SAT 97
--- NOTE | 2017-11-28 17:03 | Radiation Oncology Follow-Up ---
Radiation Oncology Follow-Up Date of Visit Nov 28, 2017. 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 Status post bronchoscopy and EMS August 02, 2017 Squamous cell carcinoma Clinical stage TIa N2 M0 Status post completion of combined radiation and chemotherapy. Status post completion of radiation therapy October 29, 2017. She received 4600 cGy Plan for surgical resection. 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 She underwent a right middle lobectomy on 05/24/2007. There was complete excision of a stage IA carcinoid. Patient has been followed since that time. Unfortunately she has also continued to smoke 1 pack a day. She did quit [address] of the chest without IV contrast performed on 05/19/2016 again confirmed postsurgical findings from a right middle lobectomy. This is been stable. There were no suspicious nodules. On 07/09/2017 patient underwent a repeat screening CT scan. This showed prominent lymph nodes in the prevascular and precarinal regions that were similar to prior exams. Lymph nodes in the subcarinal region may be enlarged compared to prior study. There was interval development of a pathologically enlarged lymph nodes in the right hilum. On lung windows. Postsurgical changes of the right middle lobectomy were again noted. There was interval development of a nodular opacities in the anterior segment of the right upper lobe. These were suspicious and additional studies were recommended. On 07/23/2017 patient underwent a PET/CT scan for a single pulmonary nodule. This showed emphysema and postoperative changes from the previously noted right middle lobectomy. There was a tiny focus of nodularity in the right upper lung which has not significantly changed from the previous study of 2016. The majority of nodules are too small for adequate pet characterization. The largest nodule does demonstrate mild FDG activity. Its appearance is nonspecific. No pathologically enlarged mediastinal or hilar nodes were clearly identified. Low level FDG activity localized to the right hilum was nonspecific with recommended continued follow-up. There was no evidence of extrathoracic metastatic disease. Patient was seen by Dr. Rowland recommended further evaluation with bronchoscopy and EBUS evaluation of lymph nodes. This was performed on 08/02/2017. Fine-needle EBUS of lymph node L 12 revealed no malignant cells. Case: -NG. Fine-needle EBUS of lymph node station 7 showed no malignant cells. Case: -NG. Fine-needle EBUS of lymph node R4 was positive for metastatic non-small cell carcinoma consistent with a squamous cell carcinoma. Case: -NG. Bronchial washings from the right upper lobe revealed no malignant cells. Case: -NG. Patient was therefore staged as a T1a, N2, M0, stage IIIa squamous cell carcinoma the right lung. Patient was not felt to be a surgical candidate based on her staging. It was arranged for her to be seen by Dr. Robert Méndez for medical oncology. She was seen on 08/21/2017. He recommended treatment with chemotherapy and radiation as definitive treatment. He arranged for us to see the patient in referral. She sought a second opinion to [facility]. She was also seen by Dr. Wong. It was felt that she was a candidate for Resection following completion of combined radiation and chemotherapy. She return and underwent combined treatment. Medical oncology gave weekly Taxol and carboplatin. Radiation therapy was completed October 29, 2017. She received 4600 cGy. Interim History Over this past month she has decreased energy levels and some mild shortness of breath. She has a cough. This is not a persistent cough. She has one last chemotherapy cycle to complete. This will be given on December 02, 2017. She has had issues tolerating the Neulasta. This causes generalized joint pain and discomfort. With the joint pain and decreased energy is been difficult for her to attempt any type of exercise. The pain is more intense following the injection and then somewhat decreases. She is taking Tylenol at bedtime. She does not take any pain medication on a regular basis. 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 She feels she now has it in her feet. The arthralgias are especially worse in her knees. Allergies Coded Allergies: No Known Allergies (Verified , 09/17/17) Home Medications Scheduled Clonazepam (Klonopin), 0.5 MG PO TID Ergocalciferol (Vitamin D 40516 Unit), 1 CAP PO WK Fish Oil (Arnold-3), 1 CAP PO BID Fluoxetine (Prozac), 40 MG PO QAM Magnesium Oxide (Mag-Ox), 800 MG PO DAILY Metformin Hcl (Glucophage), 1,000 MG PO BID Metoprolol Tartrate (Lopressor), 50 MG PO BID Multiple Vitamin (Multivitamin), 1 TAB PO QPM Simvastatin (Simvastatin), 20 MG PO HS Vitamin B Cmplx/Vitc/Folic Ac (Nephrocaps), 1 CAP PO DAILY Scheduled PRN Albuterol Sulfate (Albuterol Sulfate), 1 VIAL NEB UD PRN for Wheezing Albuterol Sulfate (Proair Respiclick), 1 PUFF INH Q4H PRN for COLD SYMPTOMS Budesonide/Formoterol Fumarate (Symbicort 80/4.5 Inhaler), 2 PUFFS INH BID PRN for COLD SYMPTOMS [Proair], 2 PUFFS INH QID PRN for SOB/Wheezing Review of Systems Gastrointestinal: Symptoms: WNL Oral: Symptoms: No Problems Respiratory: Symptoms: Moist Cough, SOB With Exertion, Productive Cough Sputum Character: White to clear sputum when productive; Other Respiratory: SOB w/activity Urinary: Symptoms: WNL Skin: Symptoms: No Problems Physical Exam Vital Signs Date Time Temp Pulse Resp B/P (MAP) Pulse Ox O2 Delivery O2 Flow Rate FiO2 11/28/17 13:51 36.7 88 16 149/84 97 Fatigue: Moderate General Appearance: no apparent distress Eyes: normal inspection, EOMI ENT: normal ENT inspection, hearing grossly normal Neck: no adenopathy, thyroid normal Respiratory/Chest: lungs clear, no respiratory distress, no accessory muscle use, + decreased breath sounds Cardiovascular: regular rate, rhythm, no gallop, no murmur Extremities: no pedal edema Neurologic/Psychiatric: alert, normal mood/affect Skin: warm/dry Pain Management Patient Reports Pain: Yes Initial Pain Intensity: 5.0 Pain Management Plan She is taking Tylenol or ibuprofen intermittently for pain. Laboratory Laboratory Results: not applicable Pathology Pathology Results: were reviewed, and pertinent findings noted in HPI Imaging Imaging Studies: were reviewed, and pertinent findings noted in HPI Assessment & Plan Plan: Continue regular follow-up with medical oncology. She has chemotherapy scheduled for December 02, 2017. I have asked her to call the medical oncologist office and discussed the joint pain and discomfort as well as probable neuropathy that she is experiencing. She may benefit from medication to help with her side effects. She has a follow-up appointment with Dr. Wong. Today we completed a cancer survivorship care plan. A copy of the document was given to the patient. She was given a survivorship booklet. We asked her to return to our office in 6 months. She may call our office if she has any questions or concerns in the interim. Total Time In Follow-Up I spent 20 minutes speaking to the patient in performing examination. I spent 20 minutes reviewing information, preparing the survivorship document, and completing this note. Copy To Avila Lopez III, CRNP; Maximiliano Sampson MD; Mukesh Wong MD
== END | disposition home or self-care (01) ==
LOC: C.ONC 13:45
PROVIDERS: ATTEND Physician Assistant Medical
DX: Z08 Encounter for follow-up examination after completed treatment for malignant neoplasm (principal); Z92.3 Personal history of irradiation; Z85.118 Personal history of other malignant neoplasm of bronchus and lung

== ENCOUNTER → 2018-01-17 | Outpatient (CLI) | payer OTHER ==
[~2018-01-17] MED LIST changes: -ASPCH81X PO; -CYAN100T PO; -HYDR-5688 PO; +OPTIRAY 320 IV PRN
--- NOTE | 2018-01-17 15:53 | DIAGNOSTIC IMAGING REPORT ---
CHEST CT WITH CONTRAST CT DOSE: 562.75 mGycm HISTORY: LUNG CANCER NON SMALL CELL TECHNIQUE: Multiaxial CT images of the chest were performed following the intravenous administration of contrast. A dose lowering technique was utilized adhering to the principles of ALARA. COMPARISON: Chest CT 10/26/2017. FINDINGS: There again noted postoperative changes consistent with a right middle lobectomy. Otherwise, the central airways are patent. Mild interstitial thickening and mild emphysema persists. No pneumothorax. Scarlike densities along the right lung suture material are again noted. There is a new 1 cm groundglass nodule within the right upper lobe abutting the suture material image 103. The left lung remains clear. Postthoracotomy changes within the right posterior ribs. No suspicious lytic or blastic osseous lesions. Left subclavian catheter terminates at the distal SVC. Stable prominent right hilar lymph node measuring 11 mm in short axis diameter. No new mediastinal or hilar lymphadenopathy. Trace pericardial effusion. The central pulmonary arteries are patent. Normal caliber thoracic aorta. Hepatic steatosis. The spleen and adrenal glands are unremarkable. Right peritracheal lymph nodes have decreased in size IMPRESSION: 1. There again noted postoperative changes consistent with a prior right middle lobectomy. There is a new 1 cm groundglass nodule abutting the suture material within the right upper lobe. This is nonspecific and could represent a small focus of inflammatory/infectious change or posttreatment change. However, short-term chest CT follow-up in one month is recommended to ensure stability/resolution. 2. No change in the mild interstitial thickening and emphysema. 3. Hepatic steatosis. 4. Stable mildly enlarged right hilar lymph node. 6. Right peritracheal lymph nodes have decreased in size and are now considered to be within the range of normal limits. Electronically signed by: Kyler Sanders M.D. 01/17/2018 3:52 PM Dictated Date/Time: 01/17/2018 3:44 PM
== END | disposition home or self-care (01) ==
LOC: C.CTS 15:10
PROVIDERS: ATTEND Internal Medicine Hematology & Oncology
DX: C34.11 Malignant neoplasm of upper lobe, right bronchus or lung (principal)